=== PATIENT | male | born 1955 | race Caucasian/White ===

== ENCOUNTER 2016-11-21 10:07 | Emergency (ER) | payer OTHER ==
[2016-11-21 10:23] VITALS: BMI 24.4
[2016-11-21 10:36] VITALS: BP 147/88
--- NOTE | 2016-11-21 11:38 | RAD ---
ACUTE ABDOMINAL SERIES CLINICAL HISTORY: 61-year-old male inhaled chemicals. COMPARISON: Chest radiograph February 12, 2016. FINDINGS: PA and lateral chest radiographs demonstrate normal cardiopericardial silhouette. There is no focal c onsolidation, pleural effusion or pneumothorax. Pulmonary vascularity is normal. Abdominal radiographs demonstrate a nonobstructive bowel gas pattern. Gas and stool are seen througho ut the colon. There is no small bowel distention. There is no radiographic evidence of pneumoperitone um. Imaged osseous structures are intact. Soft tissues are unremarkable. IMPRESSION: 1. No acute cardiopulmonary process. 2. Nonobstructive bowel gas pattern without radiographic evidence of pneumoperitoneum. Reported By:
--- NOTE | 2016-11-21 12:14 | DR.GENAD ---
HPI - PCP Primary Care Physician: pedro - HPI Comment HPI Comment: Pt inhaled a mist of detergent at work today. He became SOB and hadsome mild chest pain at the onset.He is alert awake and oriented X3. - Complaint/Symptoms Chief Complaint Doctors Comments: " I am SOB". Chief Complaint:: inhalation of liquid deregent" Self Treatment fo Chief Complaint: sob, wheezing, throat burning - Nurses notes reviewed Nurses Notes Review: Yes - Source History Provided: Patient - Mode of Arrival Mode of Arrival: EMS - Timing Onset of Chief Complaint: 11/21/16 - Duration Duration: Since Onset How lon Duration: Minutes - Severity Severity: Moderate PMH - PMH Past Medical History: Yes Past Medical History: Diabetes, Dyslipidemia, Hypertension, Hypothyroidism Past Surgical History: Yes Surgical History: Appendectomy, Tonsillectomy, Other Past Surgical History Comment: elbow, gerd - Family History History of Family Medical Conditions: Yes Family Medical History: Diabetes Mellitus, Coronary Artery Disease, Hypertension - Social History Does patient currently use any type of tobacco product: No Have you used tobacco products in the last 12 months: No Does any household member use tobacco: No Alcohol Use: None Do you use any recreational Drugs:: No Lives Where: Home - infectious screening In the last 2 months have you had wt loss of >10#?: NO Have you had fever, night sweats or hemotysis?: No Have you traveled outside the country in the last 6 months?: No Isolation: Standard ROS - Review of Systems Constitutional: Diaphoresis Eyes: No Symptoms Reported ENTM: Throat Pain, Throat Swelling Respiratoy: Short of Breath, Wheezing Cardiovascular: Chest Pain Gastrointestinal/Abdominal: No Symptoms Reported Genitourinary: No Symptoms Reported Neurological: Anxiety Musculoskeletal: No Symptoms Reported Integumentary: No Symptoms Reported Hematologic/Lymphatic: No Symptoms Reported Endocrine: No Symptoms Reported Psychiatric: No Symptoms Reported All Other Systems: Reviewed and Negative PE - Vital Signs Vitals: Pulse Rate [Apical] 86 Pulse Rate 86 Respiratory Rate 22 Blood Pressure [Left Arm] 147/88 Blood Pressure 188/86 O2 Sat by Pulse Oximetry 99 - General Limitations: No Limitations General Appearance: Alert, In No Apparent Distress - Head Head Exam: Normal Inspection - Eyes Eye exam: Normal Appearance, PERRL, EOMI - ENT ENT Exam: Normal Exam, Normal Oropharynx, Normal External Ear Exam, Mucous Membranes Moist Nose Exam: Normal Nose Exam Mouth Exam: Normal Inspection Throat Exam: Normal Inspection - Neck Neck Exam: Normal Inspection, Full ROM, Trachea Midline - Chest Chest Inspection: Normal Inspection, Symmetric Chest Wall Rise - Respiratory Respiratory Exam: Normal Lung Sounds Bilat Respiratory Exam: Bilateral Clear to Auscultation - Cardiovascular Cardiovascular Exam: Regular Rate, Normal Rhythm, Normal Heart Sounds - Abdominal Exam Abdominal Exam: Normal Inspection, Soft - Extremities Extremities Exam: Normal Inspection, Full ROM - Back Back Exam: Normal Inspection, Full ROM - Neurologic Neurological Exam: Alert, Oriented X3, CN II-XII Intact - Psychiatric Psychiatric Exam: Normal Affect, Normal Mood - Skin Skin Exam: Warm, Dry, Intact, Normal Color MDM - Differential Diagnosis Differential Diagnosis: allergic reaction, Course - Treatment Treatment: supportive methods - Reevaluation 1st: Improved - Consultation Called: 12:19 (poison control) Call Returned: 12:19 (supportive care) ROR - Labs Reviewed Result Diagrams: 11/21/16 12:30 11/21/16 12:30 Laboratory: WBC 5.4 X10^3/uL (3.6-10.0) 11/21/16 12:30 RBC 5.39 X10^6/uL (4.7-6.0) 11/21/16 12:30 Hgb 16.7 g/dL (13.5-18.0) 11/21/16 12:30 Hct 47.1 % (42.0-54.0) 11/21/16 12:30 MCV 87.3 fL (80.0-100.0) 11/21/16 12:30 MCH 31.0 pg (27.0-34.0) 11/21/16 12:30 MCHC 35.5 g/dL (33.0-35.0) H 11/21/16 12:30 RDW 14.2 % (11.6-16.5) 11/21/16 12:30 Plt Count 111 X10^3/uL (150.0-450.0) L 11/21/16 12:30 MPV 8.4 fL (7.4-11.0) 11/21/16 12:30 Neut % 67.1 % (42.0-75.0) 11/21/16 12:30 Lymph % 22.5 % (21.0-51.0) 11/21/16 12:30 Preston % 8.3 % (0.0-13.0) 11/21/16 12:30 Eos % 1.4 % (0.9-2.9) 11/21/16 12:30 Baso % 0.7 % (0.2-1.0) 11/21/16 12:30 Neut # 3.6 x10^3/uL (2.2-4.8) 11/21/16 12:30 Lymph # 1.2 X10^3/uL (1.3-2.9) L 11/21/16 12:30 Preston # 0.4 x10^3/uL (0.3-0.8) 11/21/16 12:30 Eos # 0.1 x10^3/uL (0.0-0.2) 11/21/16 12:30 Baso # 0.0 X10^3/uL (0.0-0.1) 11/21/16 12:30 Absolute Nucleated RBC 0.1 /100WBC 11/21/16 12:30 Sodium 144 mmol/L (136-145) 11/21/16 12:30 Corrected Sodium 146 mmol/L (136-145) H 11/21/16 12:30 Potassium 4.8 mmol/L (3.5-5.1) 11/21/16 12:30 Chloride 108 mmol/L (98-107) H 11/21/16 12:30 Carbon Dioxide 29.0 mmol/L (21-32) 11/21/16 12:30 BUN 15 mg/dL (7-18) 11/21/16 12:30 Creatinine 1.30 mg/dL (0.70-1.30) 11/21/16 12:30 Est GFR (MDRD) Af Amer > 60 (>60) 11/21/16 12:30 Est GFR (MDRD) Non-Af 59 (>60) 11/21/16 12:30 Glucose 191 mg/dL (65-99) H 11/21/16 12:30 Calcium 9.2 mg/dL (8.5-10.1) 11/21/16 12:30 Corrected Calcium TNP 11/21/16 12:30 Total Bilirubin 0.80 mg/dL (0.2-1.0) 11/21/16 12:30 AST 18 Units/L (15-37) 11/21/16 12:30 ALT 36 Units/L (12-78) 11/21/16 12:30 Alkaline Phosphatase 61 Units/L (46-116) 11/21/16 12:30 Total Protein 7.4 g/dL (6.4-8.2) 11/21/16 12:30 Albumin 3.9 g/dL (3.4-5.0) 11/21/16 12:30 Globulin 3.5 g/dL (2.5-4.5) 11/21/16 12:30 Albumin/Globulin Ratio 1.1 Ratio (1.1-2.1) 11/21/16 12:30 - Diagnosis Discharge Problem: Allergic reaction to chemical substance Qualifiers: Encounter type: initial encounter Injury intent: accidental or unintentional Qualified Code(s): T65.91XA - Toxic effect of unspecified substance, accidental (unintentional), initial encounter - Discharge Plan Disposition: HOME, SELF-CARE Condition: Stable - Follow ups/Referrals Follow ups/Referrals: GIULIA GANDARA [Primary Care Provider] - 3 days - Instructions Instructions: Angioedema, [id number]
[2016-11-21 12:44] LABS: BASOPHILS % (AUTO) 0.7 % (0.2-1.0); EOSINOPHILS # (AUTO) 0.1 x10^3/uL (0.0-0.2); EOSINOPHILS % (AUTO) 1.4 % (0.9-2.9); HEMATOCRIT 47.1 % (42.0-54.0); HEMOGLOBIN 16.7 g/dL (13.5-18.0); LYMPHOCYTES # (AUTO) 1.2 X10^3/uL (1.3-2.9); LYMPHOCYTES % (AUTO) 22.5 % (21.0-51.0); MEAN CORPUSCULAR HGB CONC 35.5 g/dL (33.0-35.0); MEAN CORPUSCULAR VOLUME 87.3 fL (80.0-100.0); MEAN PLATELET VOLUME 8.4 fL (7.4-11.0); MONOCYTES # (AUTO) 0.4 x10^3/uL (0.3-0.8); MONOCYTES % (AUTO) 8.3 % (0.0-13.0); NEUTROPHILS # (AUTO) 3.6 x10^3/uL (2.2-4.8); NEUTROPHILS % (AUTO) 67.1 % (42.0-75.0); PLATELET COUNT 111 X10^3/uL (150.0-450.0); RED BLOOD COUNT 5.39 X10^6/uL (4.7-6.0); RED CELL DISTRIBUTION WIDTH 14.2 % (11.6-16.5); WHITE BLOOD COUNT 5.4 X10^3/uL (3.6-10.0)
[2016-11-21] MEDS ORDERED: BENADRYL CAP/TAB 25 MG PO ONE (12:51)
[2016-11-21] MEDS: BENADRYL CAP 50 MG PO ONE ×2 (12:53→13:10)
[2016-11-21 12:56] LABS: ALANINE AMINOTRANSFERASE 36 Units/L (12-78); ALBUMIN 3.9 g/dL (3.4-5.0); ALKALINE PHOSPHATASE 61 Units/L (46-116); ASPARTATE AMINO TRANSFERASE 18 Units/L (15-37); BLOOD UREA NITROGEN 15 mg/dL (7-18); CALCIUM 9.2 mg/dL (8.5-10.1); CHLORIDE 108 mmol/L (98-107); COR NA(FOR HYPERGLY) 146 mmol/L (136-145); GLUCOSE 191 mg/dL (65-99); SODIUM 144 mmol/L (136-145); TOTAL PROTEIN 7.4 g/dL (6.4-8.2); eGFR BLACK RACES > 60 (>60); eGFR NON BLACK RACES 59 (>60)
== END 2016-11-21 13:17 | disposition home or self-care (01) ==
LOC: ER 10:17
DX: R06.02 Shortness of breath (principal); T65.91XA Toxic effect of unspecified substance, accidental (unintentional), initial encounter
CPT/HCPCS: 36415; 74022; 80053; 85025; 93005; 93010; 96374; 99282; 99283

== ENCOUNTER 2016-12-08 11:47 | Observation (INO) | payer OTHER ==
[2016-12-08 12:03] VITALS: BMI 25.0
--- NOTE | 2016-12-08 12:18 | DR.WEAKNES ---
HPI - Time Seen Time seen: 12:05 - Primary Care Physician Primary Care Physician: NICHOL GRAVES - HPI Comment HPI Comment: WOKE UP. WENT TO [facility], LEFT FACIAL NUMBNESS WITH NECK PAIN ON LEFT SIDE. THIS WAS FOLLOW BY NUMBNESS AND WEAKNESS ON THE LEFT SIDE. CAME TO ED. HE FEEL DIZZY. TOOK 325MG ASPRIN THIS AM. - Complaints Chief Complaint Doctors Comments: LEFT FACIAL AND LEFT SIDED NUMBNESS AND WEAKNESS SINCE 10:00AM TODAY. Chief Complaint:: PT C/O AROUND 10 AM PT C/O NUMBNESS TO HIS LEFT SIDE OF FACE, AND LEFT SIDE WEAKNESS,,, Self Treatment fo Chief Complaint: PT C/O PAIN TO THE RIGHT SIDE OF HIS HEAD, NECK.. PT IS ABLE TO ANWER QUESTIONS AND MOVE ALL EXTS WELL.. - Reviewed Nurses Notes Reviewed: Yes - Source History Provided: Patient - Mode of Arrival Mode of Arrival: Wheelchair - Timing Onset of Chief Complaint: 12/08/16 Since onset, symptoms are:: Unchanged Symptom Onset: Unknown Onset of Symptoms Start Date: 12/08/16 Onset of Symptoms Start Time: 10:00 - Duration Duration: Constant Duration: Hours - Context Onset: Spontaneous, At rest Symptoms: Weakness, Numbness History of: CVA, TIA, Aspirin use Stroke Symptoms: Weakness of limb, Numbness of limbs, Dizziness - Location Weakness Location: Left, Sided, Arm, Leg, Facial - Associated Signs and Symptoms Associated Signs and Symptoms: Neck Pain PMH - PMH Past Medical History: Yes Past Medical History: Alzheimers, Diabetes, Dyslipidemia, Hypertension, Hypothyroidism Past Surgical History: Yes Surgical History: Appendectomy, Tonsillectomy, Other - Family History History of Family Medical Conditions: Yes Family Medical History: Diabetes Mellitus, Coronary Artery Disease, Hypertension - Social History Does patient currently use any type of tobacco product: No Have you used tobacco products in the last 12 months: No Type of Tobacco Use: None Does any household member use tobacco: No Alcohol Use: None Do you use any recreational Drugs:: No Lives With: Family Lives Where: Home - infectious screening In the last 2 months have you had wt loss of >10#?: NO Have you had fever, night sweats or hemotysis?: No Have you traveled outside the country in the last 6 months?: No Isolation: Standard ROS - Review of Systems Constitutional: Weakness (LT SIDED.) Eyes: Blurred Vision (TRANSIENT BLURRED VISION AROUND 10:00AM BUT RESOLVRE QUICKLY.) ENTM: No Symptoms Reported. negative: Ear Pain, Nose Discharge, Nose Congestion , Throat Pain Respiratoy: Short of Breath. negative: Productive Cough, Non-Productive Cough, Wheezing, Hemoptysis Cardiovascular: No Symptoms Reported. negative: Chest Pain, Edema, Palpitations Gastrointestinal/Abdominal: No Symptoms Reported. negative: Abdominal Pain, Constipation, Diarrhea, Nausea, Vomiting Genitourinary: No Symptoms Reported. negative: Dysuria, Frequency, Hematuria Neurological: Headache, Numbness, Weakness, Dizziness Musculoskeletal: No Symptoms Reported Integumentary: No Symptoms Reported Hematologic/Lymphatic: No Symptoms Reported Endocrine: No Symptoms Reported All Other Systems: Reviewed and Negative PE - Vital Signs Vitals: Temperature 97.7 F Pulse Rate [Left Brachial] 75 Pulse Rate 80 Respiratory Rate 20 Blood Pressure [Left Arm] 134/75 Blood Pressure 156/87 O2 Sat by Pulse Oximetry 100 - General Limitations: No Limitations General Appearance: Alert - Head Head Exam: Normal Inspection - Eyes Eye exam: Normal Appearance Eyelids: Normal Inspection: Bilateral Pupils: Regular, Round: Bilateral, Reactive: Bilateral Sclera/Conjunctival: Normal Inspection: Bilateral - ENT ENT Exam: Normal Exam Mouth Exam: Normal Inspection Throat Exam: Normal Inspection - Neck Neck Exam: Trachea Midline - Chest Chest Inspection: Symmetric Chest Wall Rise - Respiratory Respiratory Exam: Normal Lung Sounds Bilat Respiratory Exam: Bilateral Clear to Auscultation - Cardiovascular Cardiovascular Exam: Regular Rate, Normal Rhythm, Normal Heart Sounds - Abdominal Exam Abdominal Exam: Normal Bowel Sounds, Soft. negative: Tenderness - Extremities Extremities Exam: negative: Tenderness, Edema, Calf Tenderness - Back Back Exam: Normal Inspection - Neurologic Neurological Exam: Alert, Oriented X3, Normal Gait, Reflexes Normal, Other ( DECREASE SENSATION LEFT FACE.) Patient Oriented To: Person, Place, Time Speech: Fluid Speech Cranial Nerve Exam: EOM Function (II, III, IV, ): Normal, Facial Sensation (V) : Left Abnormal (DECREASE SENSATION), Gag reflex (XI): Normal, Spinal Accessory Function (XI): Normal, Tongue Deviation: Normal Cerebellar Function: Normal Gait Motor Strength - LUE: 4/5 Motor Strength - RUE: 5/5 Motor Strength - LLE: 4/5 Motor Strength - RLE: 5/5 Upper Motor Neuron Exam: Babinski Sign: Normal DTR: achilles tendon (L): 4+, achilles tendon (R): 4+, brachioradialis (L): 4+, brachioradialis (R): 4+, Patellar (L): 4+, patellar (R): 4+ - Psychiatric Psychiatric Exam: Anxious - Skin Skin Exam: Normal Color MDM - Additional Information Obtained Additional Information Obtained From: Family - Differential Diagnosis Differential Diagnosis: Cuellar's Palsey, CVA, Electrolyte Disorder, Hypoglycemia, Mass Lesion, TIA Course - Treatment Treatment: SEE ORDERS. PLAVIX PO IN ED. 325MG ASPRIN TAKEN AT HOME. - Consultation Consultation Comments: STROKE TELEMEDINE, SEE REPORT. DISCUSS PATIENT WITH DR. AZEVEDO. HE WILL ADMIT FOR OBS. - Education/Counseling Education/Counseling: Patient, Family, Education Educated On: Diagnosis ROR - Labs Reviewed Laboratory Results Reviewed?: Yes Result Diagrams: 12/09/16 04:45 12/09/16 04:45 Laboratory: WBC 4.3 X10^3/uL (3.6-10.0) 12/08/16 12:33 RBC 5.21 X10^6/uL (4.7-6.0) 12/08/16 12:33 Hgb 16.2 g/dL (13.5-18.0) 12/08/16 12:33 Hct 45.5 % (42.0-54.0) 12/08/16 12:33 MCV 87.3 fL (80.0-100.0) 12/08/16 12:33 MCH 31.0 pg (27.0-34.0) 12/08/16 12:33 MCHC 35.5 g/dL (33.0-35.0) H 12/08/16 12:33 RDW 13.8 % (11.6-16.5) 12/08/16 12:33 Plt Count 118 X10^3/uL (150.0-450.0) L 12/08/16 12:33 MPV 8.1 fL (7.4-11.0) 12/08/16 12:33 Neut % 59.6 % (42.0-75.0) 12/08/16 12:33 Lymph % 26.8 % (21.0-51.0) 12/08/16 12:33 Webb % 9.9 % (0.0-13.0) 12/08/16 12:33 Eos % 3.0 % (0.9-2.9) H 12/08/16 12:33 Baso % 0.7 % (0.2-1.0) 12/08/16 12:33 Neut # 2.6 x10^3/uL (2.2-4.8) 12/08/16 12:33 Lymph # 1.2 X10^3/uL (1.3-2.9) L 12/08/16 12:33 Webb # 0.4 x10^3/uL (0.3-0.8) 12/08/16 12:33 Eos # 0.1 x10^3/uL (0.0-0.2) 12/08/16 12:33 Baso # 0.0 X10^3/uL (0.0-0.1) 12/08/16 12:33 Absolute Nucleated RBC 0.1 /100WBC 12/08/16 12:33 INR Target Range - 12/08/16 12:33 INR 1.03 (0.8-1.3) 12/08/16 12:33 PTT 26.8 SECONDS (22.9-36.5) 12/08/16 12:33 PTT Comment - 12/08/16 12:33 Fibrinogen 273 mg/dL (239-489) 12/08/16 12:33 Sodium 140 mmol/L (136-145) 12/08/16 12:33 Corrected Sodium 142 mmol/L (136-145) 12/08/16 12:33 Potassium 4.0 mmol/L (3.5-5.1) 12/08/16 12:33 Chloride 106 mmol/L (98-107) 12/08/16 12:33 Carbon Dioxide 27.1 mmol/L (21-32) 12/08/16 12:33 BUN 12 mg/dL (7-18) 12/08/16 12:33 Creatinine 1.24 mg/dL (0.70-1.30) 12/08/16 12:33 Est GFR (MDRD) Af Amer > 60 (>60) 12/08/16 12:33 Est GFR (MDRD) Non-Af > 60 (>60) 12/08/16 12:33 Glucose 183 mg/dL (65-99) H 12/08/16 12:33 Calcium 8.9 mg/dL (8.5-10.1) 12/08/16 12:33 Corrected Calcium TNP 12/08/16 12:33 Total Bilirubin 0.70 mg/dL (0.2-1.0) 12/08/16 12:33 AST 22 Units/L (15-37) 12/08/16 12:33 ALT 30 Units/L (12-78) 12/08/16 12:33 Alkaline Phosphatase 55 Units/L (46-116) 12/08/16 12:33 Creatine Kinase 126 Units/L (39-308) 12/08/16 12:33 CK-MB (CK-2) 1.6 ng/mL (0-4.0) 12/08/16 12:33 CK/CKMB % Calc 1.3 % (<4) 12/08/16 12:33 Troponin I < 0.02 ng/mL (0-1.5) 12/08/16 12:33 Total Protein 6.6 g/dL (6.4-8.2) 12/08/16 12:33 Albumin 3.4 g/dL (3.4-5.0) 12/08/16 12:33 Globulin 3.2 g/dL (2.5-4.5) 12/08/16 12:33 Albumin/Globulin Ratio 1.1 Ratio (1.1-2.1) 12/08/16 12:33 - XRAY XRAY Interpreted by: Radiologist XRAY Findings: REPORT DISCUSS WITH PATIENT. - EKG Rhythm: NSR (EKG NOTED) - Diagnosis Discharge Problem: Left-sided weakness, TIA (transient ischemic attack) - Discharge Plan Disposition: ADMITTED INPATIENT Condition: Stable - Follow ups/Referrals - Instructions
--- NOTE | 2016-12-08 12:45 | CT ---
CT HEAD WITHOUT CONTRAST CLINICAL HISTORY: 61-year-old male with left-sided numbness injury penis. COMPARISON: CT head September 04, 2010. TECHNIQUE: Multiple, non-contrasted axial CT images were obtained from the skull base to the cranial vertex. Coronal and sagittal reformats were performed. FINDINGS: There are no abnormal intra- or extra-axial fluid collections, midline shift, or mass effec t. Asymmetric hyperdensity within the distal M2 proximal M3 branches on the right with subtle blurrin g of the bain-white. Global cortical involutional changes are present that are advanced for the patie nt's stated age. The ventricular system is mildly enlarged but commensurate with the degree of sulcal prominence. Periventricular and supraventricular white matter hypodensity is present that is nonspec ific in appearance, but most likely to represent microvascular ischemic changes. Atherosclerotic vasc ular calcification is present within the carotid siphons. The imaged paranasal sinuses, mastoid air cells, and tympanic spaces are clear. IMPRESSION: 1. Hyperdense distal right M2 and proximal right M3 branches with subtle blurring of the bain-white, suggesting acute occlusive ischemic insult, recommend conventional angiography if available or transf er to facility with the capability if patient remains within the stroke window. MRI/MRA brain for com plete evaluation. 2. Moderate microvascular white matter ischemic changes, with associated volume loss. Findings were discussed via telephone with Dr. Gauthier, by Dr. [facility] on December 08, 2016 a t 12:40 p.m.. Reported By:
--- NOTE | 2016-12-08 12:51 | RAD ---
HISTORY: 61-year-old male with stroke like symptoms. Study: Frontal view of the chest. Comparison: Chest radiograph November 21, 2016. Findings: The trachea is midline. The cardiac silhouette is unremarkable. The lungs are clear without focal c onsolidation, effusion or pneumothorax. Soft tissues are unremarkable. Osseous structures are unrema rkable. IMPRESSION: 1. No acute cardiopulmonary disease. Reported By:
[2016-12-08 12:56] LABS: BASOPHILS % (AUTO) 0.7 % (0.2-1.0); EOSINOPHILS # (AUTO) 0.1 x10^3/uL (0.0-0.2); HEMATOCRIT 45.5 % (42.0-54.0); HEMOGLOBIN 16.2 g/dL (13.5-18.0); LYMPHOCYTES # (AUTO) 1.2 X10^3/uL (1.3-2.9); LYMPHOCYTES % (AUTO) 26.8 % (21.0-51.0); MEAN CORPUSCULAR HGB CONC 35.5 g/dL (33.0-35.0); MEAN CORPUSCULAR VOLUME 87.3 fL (80.0-100.0); MEAN PLATELET VOLUME 8.1 fL (7.4-11.0); MONOCYTES # (AUTO) 0.4 x10^3/uL (0.3-0.8); MONOCYTES % (AUTO) 9.9 % (0.0-13.0); NEUTROPHILS # (AUTO) 2.6 x10^3/uL (2.2-4.8); NEUTROPHILS % (AUTO) 59.6 % (42.0-75.0); PLATELET COUNT 118 X10^3/uL (150.0-450.0); RED BLOOD COUNT 5.21 X10^6/uL (4.7-6.0); RED CELL DISTRIBUTION WIDTH 13.8 % (11.6-16.5); WHITE BLOOD COUNT 4.3 X10^3/uL (3.6-10.0)
[2016-12-08 13:05] LABS: BLOOD UREA NITROGEN 12 mg/dL (7-18); CALCIUM 8.9 mg/dL (8.5-10.1); CARBON DIOXIDE 27.1 mmol/L (21-32); CHLORIDE 106 mmol/L (98-107); COR NA(FOR HYPERGLY) 142 mmol/L (136-145); CREATININE 1.24 mg/dL (0.70-1.30); SODIUM 140 mmol/L (136-145); TROPONIN I < 0.02 ng/mL (0-1.5); eGFR BLACK RACES > 60 (>60); eGFR NON BLACK RACES > 60 (>60)
[2016-12-08 13:06] LABS: ALANINE AMINOTRANSFERASE 30 Units/L (12-78); ALBUMIN 3.4 g/dL (3.4-5.0); ALKALINE PHOSPHATASE 55 Units/L (46-116); ASPARTATE AMINO TRANSFERASE 22 Units/L (15-37); CKMB % 1.3 % (<4); CREATINE KINASE 126 Units/L (39-308); CREATINE KINASE MB 1.6 ng/mL (0-4.0); TOTAL PROTEIN 6.6 g/dL (6.4-8.2)
[2016-12-08] MEDS ORDERED: NS 1000 ML 1,000 ML ONE (13:20)
[2016-12-08] MEDS: NS 1000 ML 1,000 ML IV SCH ×2 (13:28→22:13)
[2016-12-08] MEDS ORDERED: BRILINTA PO SCH (14:00)
[2016-12-08] MEDS ORDERED: PLAVIX PO ONE (14:15)
[2016-12-08] MEDS ORDERED: PLAVIX ONE (14:24)
[2016-12-08] MEDS: ASPIRIN PO SCH (14:38)
[2016-12-08] MEDS ORDERED: NS 100 ML IV 100 ML IV ONE (15:59)
[2016-12-08 16:01] LABS: CHOL/HDL RATIO 4.6 (0.0-5.0)
--- NOTE | 2016-12-08 18:20 | CT ---
CT ANGIOGRAPHY NECK CLINICAL HISTORY: 61-year-old male with right-sided head and neck pain with dizziness. COMPARISON: None. TECHNIQUE: Multiple axial CT images were obtained from the skull base to the aortic arch prior to an d following the administration of IV contrast and reformatted in the sagittal and coronal planes. Rot ating 3D and MIP reformats are submitted. FINDINGS: The take-off of the great vessels is conventional. The origins of the common carotid and ve rtebral arteries are patent. There is no evidence of dissection or high grade stenosis of the carotid or vertebral systems. The vertebral arteries are codominant. The vertebral arteries terminate in a n ormal appearing basilar artery. The carotid bifurcations are normal in appearance. The soft tissues of the neck are within normal limits. The visualized lung apices are clear. The osse ous structures are within normal limits. IMPRESSION: No complete occlusion , aneurysm, dissection, vascular malformation or high grade stenosis of the car otid or vertebral systems. Reported By:
[2016-12-08 19:05] LABS: BILIRUBIN,URINE NEGATIVE (NEGATIVE); BLOOD/HEMOGLOBIN,URINE NEGATIVE (NEGATIVE); GLUCOSE, URINE 2+ (NEGATIVE); KETONES,URINE NEGATIVE (NEGATIVE); LEUKOCYTE ESTERASE ,URINE NEGATIVE (NEGATIVE); NITRITES,URINE NEGATIVE (NEGATIVE); PROTEIN,URINE 1+ (NEGATIVE); UROBILINOGEN,URINE 1+ (NORMAL)
[2016-12-08 19:32] LABS: APPEARANCE,URINE CLEAR (CLEAR); BACTERIA,URINE NEGATIVE /HPF (NEGATIVE); COLOR,URINE YELLOW (YELLOW); RBC,URINE NONE SEEN /HPF (NEGATIVE); SQUAMOUS EPITHELIAL CELL,UR FEW /HPF (NEGATIVE)
[2016-12-08 19:33] LABS: AMORPHOUS SEDIMENT,UR TRACE /HPF (NEGATIVE); HYALINE CASTS, URINE RARE /LPF (NEGATIVE)
[2016-12-08 19:40] LABS: CKMB % 1.2 % (<4); CREATINE KINASE MB 1.2 ng/mL (0-4.0); TROPONIN I 0.02 ng/mL (0-1.5)
[2016-12-09 01:49] LABS: CKMB % 1.2 % (<4); CREATINE KINASE 87 Units/L (39-308); CREATINE KINASE MB < 1.0 ng/mL (0-4.0); TROPONIN I 0.04 ng/mL (0-1.5)
[2016-12-09 06:22] LABS: BASOPHILS % (AUTO) 0.5 % (0.2-1.0); EOSINOPHILS # (AUTO) 0.1 x10^3/uL (0.0-0.2); EOSINOPHILS % (AUTO) 2.4 % (0.9-2.9); HEMOGLOBIN 15.3 g/dL (13.5-18.0); LYMPHOCYTES # (AUTO) 1.4 X10^3/uL (1.3-2.9); LYMPHOCYTES % (AUTO) 32.4 % (21.0-51.0); MEAN CORPUSCULAR HEMOGLOBIN 31.2 pg (27.0-34.0); MEAN CORPUSCULAR HGB CONC 36.2 g/dL (33.0-35.0); MEAN CORPUSCULAR VOLUME 86.1 fL (80.0-100.0); MEAN PLATELET VOLUME 8.3 fL (7.4-11.0); MONOCYTES # (AUTO) 0.4 x10^3/uL (0.3-0.8); MONOCYTES % (AUTO) 8.5 % (0.0-13.0); NEUTROPHILS # (AUTO) 2.4 x10^3/uL (2.2-4.8); NEUTROPHILS % (AUTO) 56.2 % (42.0-75.0); PLATELET COUNT 104 X10^3/uL (150.0-450.0); RED BLOOD COUNT 4.89 X10^6/uL (4.7-6.0); RED CELL DISTRIBUTION WIDTH 14.1 % (11.6-16.5); WHITE BLOOD COUNT 4.3 X10^3/uL (3.6-10.0)
[2016-12-09 06:37] LABS: ALANINE AMINOTRANSFERASE 26 Units/L (12-78); ALBUMIN 3.1 g/dL (3.4-5.0); ALKALINE PHOSPHATASE 42 Units/L (46-116); ASPARTATE AMINO TRANSFERASE 22 Units/L (15-37); BLOOD UREA NITROGEN 12 mg/dL (7-18); CALCIUM 8.4 mg/dL (8.5-10.1); CARBON DIOXIDE 26.9 mmol/L (21-32); CHLORIDE 109 mmol/L (98-107); COR CA(FOR HYPOALB) 9.1 mg/dL (8.5-10.1); COR NA(FOR HYPERGLY) 143 mmol/L (136-145); CREATININE 1.04 mg/dL (0.70-1.30); SODIUM 143 mmol/L (136-145); eGFR BLACK RACES > 60 (>60); eGFR NON BLACK RACES > 60 (>60)
[2016-12-09 06:40] LABS: HEMATOCRIT 42.8 % (42.0-54.0)
[2016-12-09] MEDS: NS 1000 ML 1,000 ML IV SCH ×4 (06:46→22:00)
[2016-12-09] MEDS: ASPIRIN PO SCH (09:23)
[2016-12-09] MEDS: PLAVIX PO SCH (09:24)
[2016-12-09] MEDS ORDERED: ATIVAN INJ 2 MG VIAL IVP ONE (10:35)
[2016-12-09] MEDS ORDERED: MOTRIN TAB 800 MG PO PRN (12:11)
[2016-12-09] MEDS ORDERED: HumuLIN R SUBCUT PRN (12:12)
[2016-12-09] MEDS ORDERED: FATTY ACIDS PO SCH (12:15)
[2016-12-09] MEDS ORDERED: OMEGA PO SCH (12:15)
[2016-12-09] MEDS ORDERED: PATIENT'S HOME MEDICATION (Metformin Hcl [Metformin Hcl] 1,000 MG) PO SCH (12:15)
[2016-12-09] MEDS ORDERED: NIACIN 750 MG PO SCH (12:15)
--- NOTE | 2016-12-09 13:01 | MRI ---
MRI Brain without contrast HISTORY: Left-sided weakness and facial drooping Comparison: none available Technique: Multiplanar multi-sequence MRI of the brain was obtained utilizing standard departmental p rotocol. Sagittal and axial T1 weighted images were obtained. Axial T2 and flair weighted images we re performed as well. Axial diffusion weighted and ADC trace mapping was performed. Findings: There is very mild subcortical T to signal abnormality within the subinsular cortex and deep white ma tter which is nonspecific however likely represents sequela of chronic microvascular ischemic disease . The midline structures appear unremarkable. The evaluation of the brain parenchyma demonstrates no a bnormal signal characteristics to suggest intraparenchymal mass or hemorrhage. No extra-axial fluid collections are observed. The ventricular system appears symmetric and nondilated. The CP angle is normal in its appearance without brainstem mass or evidence for acoustic neuroma. The flow voids on both T1 and T2 weighted imaging appear unremarkable. Evaluation of the diffusion weighted imaging d oes not demonstrate abnormal signal characteristics to suggest acute ischemic change. The extracrani al structures are unremarkable. IMPRESSION: 1. Unremarkable MRI of the brain without contrast. 2. Mild deep and subcortical white matter FLAIR and T2 signal hyperintensity is nonspecific; however likely represents sequela of chronic microvascular ischemic disease. Reported By:
--- NOTE | 2016-12-09 13:04 | MRI ---
HISTORY: TIA. Weakness on left side. Left-sided facial drooping. Study: MRA of the brain, noncontrast Comparison: No priors Technique: utilizing 3D [id number] sequences , in addition, MIP images were performed and the ves sels of the brain are evaluated without IV contrast. Findings: There is strong signal present from the vertebral, basilar and internal carotid arteries bilaterally. Neither posterior communicating artery is imaged. The anterior communicating artery is patent. No an eurysm or AVM is seen. There is no evidence of stenotic or occlusive intracranial disease. IMPRESSION: Neither posterior communicating artery is imaged. Anterior communicating artery is patent. No aneurysm or AVM is seen. No evidence of stenotic or occlusive intracranial disease. Reported By:
--- NOTE | 2016-12-09 13:31 | VAS ---
HISTORY: TIA, syncope, left-sided weakness Study: Carotid sonogram Comparison: None Technique: Multiple bain scale and color flow Doppler images of the right and left carotid arterial s ystem were obtained. The vertebral arterial system was evaluated as well. Findings: Normal color flow Doppler is seen throughout the right and left carotid arterial system. No hemodyna mically significant stenosis is seen based on velocity criteria. The right and left vertebral arteri es demonstrate antegrade flow. IMPRESSION: 1. No hemodynamically significant stenosis. Reported By:
[2016-12-09] MEDS: NEURONTIN CAP 300 MG PO SCH ×2 (13:39→21:36)
[2016-12-09] MEDS: PLETAL PO SCH ×2 (13:40→21:36)
[2016-12-09] MEDS: GLUCOTROL PO SCH ×2 (13:40→21:36)
[2016-12-09] MEDS ORDERED: SYNTHROID 50 mcg TAB PO SCH (16:30)
[2016-12-09] MEDS ORDERED: GLUCOPHAGE ONE (17:51)
[2016-12-09] MEDS: GLUCOPHAGE PO SCH (17:58)
[2016-12-09] MEDS ORDERED: SNACK - Diabetic Appropriate PO SCH (20:00)
[2016-12-09] MEDS ORDERED: ASPIRIN 325 MG PO SCH (21:00)
[2016-12-09] MEDS: LOVAZA PO SCH (21:36)
[2016-12-09] MEDS: NIASPAN ER TAB 500 MG PO SCH (21:36)
[2016-12-10] MEDS: NS 1000 ML 1,000 ML IV SCH (05:38)
[2016-12-10 05:52] LABS: BASOPHILS % (AUTO) 0.6 % (0.2-1.0); EOSINOPHILS # (AUTO) 0.1 x10^3/uL (0.0-0.2); EOSINOPHILS % (AUTO) 2.5 % (0.9-2.9); HEMATOCRIT 41.8 % (42.0-54.0); LYMPHOCYTES % (AUTO) 20.1 % (21.0-51.0); MEAN CORPUSCULAR HEMOGLOBIN 31.4 pg (27.0-34.0); MEAN CORPUSCULAR HGB CONC 35.8 g/dL (33.0-35.0); MEAN CORPUSCULAR VOLUME 87.8 fL (80.0-100.0); MEAN PLATELET VOLUME 8.2 fL (7.4-11.0); MONOCYTES # (AUTO) 0.4 x10^3/uL (0.3-0.8); MONOCYTES % (AUTO) 7.2 % (0.0-13.0); NEUTROPHILS # (AUTO) 3.6 x10^3/uL (2.2-4.8); NEUTROPHILS % (AUTO) 69.6 % (42.0-75.0); PLATELET COUNT 105 X10^3/uL (150.0-450.0); RED BLOOD COUNT 4.77 X10^6/uL (4.7-6.0); RED CELL DISTRIBUTION WIDTH 13.9 % (11.6-16.5); WHITE BLOOD COUNT 5.2 X10^3/uL (3.6-10.0)
[2016-12-10 06:03] LABS: ALANINE AMINOTRANSFERASE 24 Units/L (12-78); ALBUMIN 2.9 g/dL (3.4-5.0); ALKALINE PHOSPHATASE 49 Units/L (46-116); ASPARTATE AMINO TRANSFERASE 16 Units/L (15-37); BLOOD UREA NITROGEN 12 mg/dL (7-18); CALCIUM 7.8 mg/dL (8.5-10.1); CARBON DIOXIDE 23.5 mmol/L (21-32); CHLORIDE 109 mmol/L (98-107); COR CA(FOR HYPOALB) 8.7 mg/dL (8.5-10.1); COR NA(FOR HYPERGLY) 144 mmol/L (136-145); CREATININE 1.14 mg/dL (0.70-1.30); SODIUM 141 mmol/L (136-145); TOTAL PROTEIN 5.7 g/dL (6.4-8.2); eGFR BLACK RACES > 60 (>60); eGFR NON BLACK RACES > 60 (>60)
[2016-12-10] MEDS ORDERED: GLUCOPHAGE ONE (06:03)
[2016-12-10] MEDS: GLUCOPHAGE PO SCH (06:05)
[2016-12-10] MEDS: GLUCOTROL PO SCH (08:42)
[2016-12-10] MEDS: NEURONTIN CAP 300 MG PO SCH (08:43)
[2016-12-10] MEDS: ASPIRIN PO SCH (08:43)
[2016-12-10] MEDS: NIASPAN ER TAB 500 MG PO SCH (08:43)
[2016-12-10] MEDS: PLETAL PO SCH (08:44)
[2016-12-10] MEDS: PLAVIX PO SCH (08:45)
[2016-12-10] MEDS: LOVAZA PO SCH (08:45)
[2016-12-10 09:44] VITALS: BP 134/74
== END 2016-12-10 13:22 | disposition home or self-care (01) ==
LOC: ER 11:47 → ICU 14:30
PROVIDERS: ADMIT Internal Medicine; ATTEND Internal Medicine
DX: R20.0 Anesthesia of skin (principal); M54.2 Cervicalgia; R06.02 Shortness of breath; R29.810 Facial weakness; Z79.899 Other long term (current) drug therapy; Z79.01 Long term (current) use of anticoagulants; E11.65 Type 2 diabetes mellitus with hyperglycemia
CPT/HCPCS: 36415; 70450; 70498; 70544; 70551; 71010; 80053; 80061; 81001; 82550; 82553; 84484; 85025; 85384; 85610; 85730; 93005; 93010; 93880; 96365; 99284; 99285; A4222; G0378; J2060

== ENCOUNTER 2020-07-27 05:30 | Observation (INO) ==
[2020-07-27 05:42] VITALS: BMI 26.7
[2020-07-27] MEDS ORDERED: LEVSIN/MAALOX/LIDOC VISC PO ONE (05:58)
[2020-07-27] MEDS ORDERED: LEVSIN/MAALOX/LIDOC VISC ONE (06:02)
--- NOTE | 2020-07-27 06:07 | DR.ABDMALE ---
HPI Time seen Time Seen by Provider: 07/27/20 05:53 PCP Primary Care Physician: STEPHAN HPI comment HPI Comment: A 5 y/o male presenting with epigastric pain onset since 0130 hrs. It has been intermittent but stronger since. He describes the pain as sharp and located across the upper abdomen. He feels bloated Complaint Chief Complaint:: STOMACH UPPER Self Treatment fo Chief Complaint: BAKING SODA COVID-19 Coronavirus risk:travel/contact w/high risk person: No Has patient experienced Coronavirus symptoms: No Reviewed Nurses Notes Review: Yes Source History provided by:: the patient Mode of arrival Mode of Arrival: Ambulatory Timing Onset of Chief Complaint: 07/27/20 Location Location: Epigastric Severity Severity: Moderate Quality Quality: Cramping and Sharp Context History of: None Modifying factors Worsening Factors: Nothing Improving Factors: Antacids PMH PMH Past Medical History: Yes Past Medical History: Diabetes, Hypertension and Sleep Apnea Past Surgical History: Yes Surgical History: Appendectomy, Ortho Surgery and Tonsillectomy Past Surgical History Comment: GALLBLADDER, GERD OPERATION, RIGHT ELBOW, TONSILS,CUT KNEE Family History History of Family Medical Conditions: Yes Family Medical History: Diabetes Mellitus and Hypertension Social History Alcohol Use: None Do you use any recreational Drugs:: No Lives With: Family Lives Where: Home Travel Risk Coronavirus risk:travel/contact w/high risk person: No Has patient experienced Coronavirus symptoms: No Infectious screening Have you traveled outside the country in the last 6 months?: No Isolation: Standard ROS Review of Systems Constitutional: No Symptoms Reported Eyes: No Symptoms Reported ENTM: No Symptoms Reported Respiratoy: No Symptoms Reported Cardiovascular: No Symptoms Reported Gastrointestinal/Abdominal: Abdominal Pain and Other (bloated) Genitourinary: No Symptoms Reported Neurological: No Symptoms Reported Musculoskeletal: No Symptoms Reported Integumentary: No Symptoms Reported Hematologic/Lymphatic: No Symptoms Reported Endocrine: No Symptoms Reported Psychiatric: No Symptoms Reported PE Vital Signs Vital Signs: Temp Pulse Resp BP BP Pulse Ox 07/27/20 07:06 20 07/27/20 06:06 22 07/27/20 05:35 98.1 F 86 22 149/80 97 08/26/19 21:00 158/87 General Limitations: No Limitations General Appearance: Alert and In No Apparent Distress Head Head Exam: Normal Inspection, Atraumatic and Normocephalic Eyes Eye exam: Normal Appearance, PERRL and EOMI ENT ENT Exam: Normal Exam, Normal Oropharynx, Normal External Ear Exam and Mucous Membranes Moist Neck Neck Exam: Normal Inspection, Full ROM and Trachea Midline Chest Chest Inspection: Normal Inspection and Symmetric Chest Wall Rise Respiratory Respiratory Exam: Normal Lung Sounds Bilat Cardiovascular Cardiovascular Exam: Regular Rate, Normal Rhythm, Normal Heart Sounds, +S1 and +S2 Abdominal Exam Abdominal Exam: Normal Inspection, Normal Bowel Sounds and Soft; negative Distention, Tenderness, Guarding, Rebound, Rigidity, Dimnished Bowel Sounds, Hyperactive Bowel Sounds, Hypoactive Bowel Sounds, Organomegaly, Trauma, Incision, Ascites, Mass, Bruit, Pulsatile Mass and Hernia Rectal Rectal Exam: Deferred Back Back Exam: Normal Inspection and Full ROM Extremeties Extremities Exam: Normal Inspection and Full ROM Exam: Male: Deferred Neurologic Neurological Exam: Alert and Oriented X3 Psychiatric Psychiatric Exam: Normal Affect and Normal Mood Skin Skin Exam: Dry and Normal Color COURSE Treatment Treatment: He feels better with the administered meds. His lab results were reviewed with him. He is pending to have the radiology tests done. The case will be endorsed over to Dr. Ware at shift change. Reevaluation 1st: Improved 2nd: Improved Education/Counseling Education/Counseling: Patient, Education and Counseling Educated On: Treatment, Diagnosis, Prognosis and Needs for Follow Up ROR Labs Reviewed Result Diagrams: 07/27/20 06:07 07/27/20 06:07 Laboratory: WBC 6.6 X10^3/uL (3.6-10.0) 07/27/20 06:07 RBC 5.14 X10^6/uL (4.7-6.0) 07/27/20 06:07 Hgb 15.7 g/dL (13.5-18.0) 07/27/20 06:07 Hct 45.3 % (42.0-54.0) 07/27/20 06:07 MCV 88.2 fL (80.0-100.0) 07/27/20 06:07 MCH 30.5 pg (27.0-34.0) 07/27/20 06:07 MCHC 34.6 g/dL (33.0-35.0) 07/27/20 06:07 RDW 14.1 % (11.6-16.5) 07/27/20 06:07 Plt Count 105 X10^3/uL (150.0-450.0) L 07/27/20 06:07 MPV 8.3 fL (7.4-11.0) 07/27/20 06:07 Neut % (Auto) 77.6 % (42.0-75.0) H 07/27/20 06:07 Lymph % (Auto) 15.5 % (21.0-51.0) L 07/27/20 06:07 [place] % (Auto) 5.6 % (0.0-13.0) 07/27/20 06:07 Eos % (Auto) 0.9 % (0.9-2.9) 07/27/20 06:07 Baso % (Auto) 0.4 % (0.2-1.0) 07/27/20 06:07 Neut # (Auto) 5.1 x10^3/uL (2.2-4.8) H 07/27/20 06:07 Lymph # (Auto) 1.0 X10^3/uL (1.3-2.9) L 07/27/20 06:07 [place] # (Auto) 0.4 x10^3/uL (0.3-0.8) 07/27/20 06:07 Eos # (Auto) 0.1 x10^3/uL (0.0-0.2) 07/27/20 06:07 Baso # (Auto) 0.0 X10^3/uL (0.0-0.1) 07/27/20 06:07 Absolute Nucleated RBC 0.2 /100WBC 07/27/20 06:07 Sodium 142 mmol/L (136-145) 07/27/20 06:07 Corrected Sodium 145 mmol/L (136-145) 07/27/20 06:07 Potassium 4.1 mmol/L (3.5-5.1) 07/27/20 06:07 Chloride 105 mmol/L (98-107) 07/27/20 06:07 Carbon Dioxide 25.1 mmol/L (21-32) 07/27/20 06:07 BUN 15 mg/dL (7-18) 07/27/20 06:07 Creatinine 1.25 mg/dL (0.70-1.30) 07/27/20 06:07 Est GFR (MDRD) Af Amer > 60 (>60) 07/27/20 06:07 Est GFR (MDRD) Non-Af > 60 (>60) 07/27/20 06:07 Glucose 210 mg/dL (65-99) H 07/27/20 06:07 Calcium 9.3 mg/dL (8.5-10.1) 07/27/20 06:07 Corrected Calcium TNP 07/27/20 06:07 Total Bilirubin 0.60 mg/dL (0.2-1.0) 07/27/20 06:07 AST 25 Units/L (15-37) 07/27/20 06:07 ALT 35 Units/L (12-78) 07/27/20 06:07 Alkaline Phosphatase 67 Units/L (46-116) 07/27/20 06:07 Total Protein 7.0 g/dL (6.4-8.2) 07/27/20 06:07 Albumin 3.7 g/dL (3.4-5.0) 07/27/20 06:07 Globulin 3.3 g/dL (2.5-4.5) 07/27/20 06:07 Albumin/Globulin Ratio 1.1 Ratio (1.1-2.1) 07/27/20 06:07 Amylase 30 Units/L (25-115) 07/27/20 06:07 Lipase 193 Units/L (73-393) 07/27/20 06:07 SARS CoV-2 RNA Rapid NATHALIE Negative (NEGATIVE) 07/27/20 09:54 Opioid Opioid Risk Tool Age (Markos box if 16-45): No Total: 0 Total Score Risk Category: Low Risk Copyright: [facility] predicting aberrant behaviors Diagnosis Discharge Problem: SBO (small bowel obstruction) Instructions Instructions: Soft-Food Eating Plan Hand Washing, Hbzl-[id number] Gastritis, Adult, Yqla-zy-Cxsi Esophagogastroduodenoscopy Antibiotic Medicine, Adult, Aznz-mr-Ijub Abdominal Pain, Adult, Qpax-lq-Fwav Type 2 Diabetes Mellitus, Self Care, Adult, Ueib-xx-Autg Nausea and Vomiting, Adult, Fxrs-eu-Khrb Food Choices to Help Relieve Diarrhea, Adult Hypertension, Vbqr-lm-[id number] Esophagogastroduodenoscopy, Care After Carbohydrate Counting for Diabetes Mellitus, Adult You've Been Prescribed an Antibiotic in the Hospital for an Infection - [facility] (06/2017) Managing Your Hypertension Forms: Excuse From Work or School Precautions for COVID19 Patient Portal Social Distancing
[2020-07-27] MEDS ORDERED: MYLICON TAB 80 MG CHEW PO ONE (06:12)
[2020-07-27 06:20] LABS: BASOPHILS % (AUTO) 0.4 % (0.2-1.0); EOSINOPHILS # (AUTO) 0.1 x10^3/uL (0.0-0.2); EOSINOPHILS % (AUTO) 0.9 % (0.9-2.9); HEMATOCRIT 45.3 % (42.0-54.0); HEMOGLOBIN 15.7 g/dL (13.5-18.0); LYMPHOCYTES % (AUTO) 15.5 % (21.0-51.0); MEAN CORPUSCULAR HEMOGLOBIN 30.5 pg (27.0-34.0); MEAN CORPUSCULAR HGB CONC 34.6 g/dL (33.0-35.0); MEAN CORPUSCULAR VOLUME 88.2 fL (80.0-100.0); MEAN PLATELET VOLUME 8.3 fL (7.4-11.0); MONOCYTES # (AUTO) 0.4 x10^3/uL (0.3-0.8); MONOCYTES % (AUTO) 5.6 % (0.0-13.0); NEUTROPHILS # (AUTO) 5.1 x10^3/uL (2.2-4.8); NEUTROPHILS % (AUTO) 77.6 % (42.0-75.0); PLATELET COUNT 105 X10^3/uL (150.0-450.0); RED BLOOD COUNT 5.14 X10^6/uL (4.7-6.0); RED CELL DISTRIBUTION WIDTH 14.1 % (11.6-16.5); WHITE BLOOD COUNT 6.6 X10^3/uL (3.6-10.0)
[2020-07-27 06:28] LABS: ALANINE AMINOTRANSFERASE 35 Units/L (12-78); ALBUMIN 3.7 g/dL (3.4-5.0); ALKALINE PHOSPHATASE 67 Units/L (46-116); AMYLASE 30 Units/L (25-115); ASPARTATE AMINO TRANSFERASE 25 Units/L (15-37); BLOOD UREA NITROGEN 15 mg/dL (7-18); CALCIUM 9.3 mg/dL (8.5-10.1); CARBON DIOXIDE 25.1 mmol/L (21-32); CHLORIDE 105 mmol/L (98-107); COR NA(FOR HYPERGLY) 145 mmol/L (136-145); CREATININE 1.25 mg/dL (0.70-1.30); LIPASE 193 Units/L (73-393); SODIUM 142 mmol/L (136-145); eGFR NON BLACK RACES > 60 (>60)
--- NOTE | 2020-07-27 09:11 | CT ---
HISTORYepigastric pain, nausea, vomitingSTUDYCT abdomen pelvis with contrastTechnique: Axial post-contrast images with coronal and sagittal reformats. Dose reduction procedures were used with mA/kv adjusted for body size.COMPARISONNoneFINDINGSThe lung bases are clear. The liver, spleen, adrenal glands, and pancreas are within normal limits. No opaque stones are present within the gallbladder. The kidneys are unobstructed and without stones or masses. No ureteral calculi are identified. Calcific atherosclerotic changes present in a nondilated abdominal aorta. No intraperitoneal or retroperitoneal lymphadenopathy of significance is identified. Patient appears to be status post appendectomy. There are no findings suggestive of enteritis, colitis, or diverticulitis. Diverticulosis of the descending and sigmoid colon identified. There is dilatation of the stomach, duodenal bulb, and descending duodenum proximal to an area of narrowing in the mid transverse duodenum best visualized on CT series 4 axial image 57. The narrowing is directly dorsal to the superior mesenteric artery and superior mesenteric artery syndrome may be the etiology of the partial duodenal obstruction. Other etiologies of focal narrowing of the transverse duodenum not excluded. Additionally, there is dilatation of the proximal most loop of jejunum which is of uncertain etiology as contrast passed readily into in otherwise normal appearing jejunum and on through to the normal-appearing ileum. Examination of the pelvis demonstrated no evidence for pelvic masses, pelvic fluid, or pelvic lymphadenopathy. No bladder abnormality is identified. Prostate gland is enlarged. No lytic or blastic skeletal lesions of significance are identified.IMPRESSIONDilatation of the stomach, duodenal bulb, descending duodenum and proximal most transverse duodenum proximal to an area of narrowing in the mid transverse duodenum directly dorsal to the proximal superior mesenteric artery. The partial obstruction of the mid duodenum may be due to superior mesenteric artery syndrome. However, other etiologies of focal narrowing in the transverse duodenum not excluded.Dilatation the proximal most jejunal loop but with passage of contrast into a normal appearing small bowel distal to the loop. Etiology of this dilatation is unclear. An associated incomplete rotation of small bowel or incomplete volvulus is not entirely excluded.Electronically signed by: SUBHA ATKINS (Jul 27, 2020 09:08:17)
[2020-07-27] MEDS ORDERED: ZOFRAN INJ 4 MG VIAL IVP ONE (09:47)
[2020-07-27] MEDS ORDERED: DILAUDID INJ IVP ONE (09:47)
[2020-07-27] MEDS ORDERED: NS 1000 ML 1,000 ML IV ONE (09:52)
[2020-07-27] MEDS ORDERED: NS 1000 ML 1,000 ML IV SCH (10:00)
[2020-07-27] MEDS ORDERED: DILAUDID INJ ONE (10:01)
[2020-07-27] MEDS ORDERED: ZOFRAN INJ 4 MG VIAL ONE (10:01)
[2020-07-27] MEDS ORDERED: NS 1000 ML 1,000 ML ONE (10:01)
--- NOTE | 2020-07-27 11:24 | RAD ---
HISTORYABDOMINAL PAINSTUDYACUTE x-ray ABDOMEN SERIES, one view chest and two views abdomenCOMPARISONAbdomen CT from same dayFINDINGSModerate gaseous dilation of the stomach and duodenum. Other dilated small bowel loops are seen in the left upper quadrant the abdomen. These loops appear to have wall thickening on CT and findings suggest possible gastroenteritis. Moderate right-sided constipation is seen. No air-fluid levels are seen. Excreted IV contrast is seen in the urinary bladder. Heart is normal in size. Likely mild atelectasis in the left lung base. No pneumothorax or pleural effusion is seen.IMPRESSIONLikely gastroenteritis changes. Moderate right-sided constipation.No suspicious chest abnormality is seen.Electronically signed by: Souleymane Brantley (Jul 27, 2020 11:23:36)
[2020-07-27] MEDS ORDERED: DIPRIVAN VIAL 20 ML ONE (14:21)
[2020-07-27] MEDS: FLAGYL IV PREMIX 500 MG BAG 500 MG/100 ML BAG IV SCH ×2 (15:35→22:16)
[2020-07-27] MEDS: D5 1/2 NS 1000 ML 1,000 ML IV SCH (17:38)
[2020-07-27] MEDS ORDERED: TYLENOL 500 MG TAB EXTRA STRENGTH PO PRN (18:56)
[2020-07-28] MEDS: D5 1/2 NS 1000 ML 1,000 ML IV SCH ×3 (02:11→11:51)
--- NOTE | 2020-07-28 05:05 | RAD ---
PROCEDURE: Acute Abdomen Series .HISTORY: Partial small bowel obstruction.TECHNIQUE: AP supine and upright abdomen with AP chest x-ray views .COMPARISON: 07/27/2020.TECHNICAL QUALITY: Satisfactory .FINDINGS:Chest x-ray shows clear lungs and normal size heart.No pneumoperitoneum.Mild gas and feces in the colon possibly with some contrast with no distention. No obstruction or ileus.Some contrast in diverticula in the pelvis.No abnormal calcifications.No organomegaly.No acute bony abnormality.IMPRESSION:1. Nonspecific bowel gas pattern.2. No active cardiopulmonary disease.Electronically signed by: Malachi Quick (Jul 28, 2020 05:03:45)
[2020-07-28] MEDS: FLAGYL IV PREMIX 500 MG BAG 500 MG/100 ML BAG IV SCH (06:02)
--- NOTE | 2020-07-28 10:11 | DR.PROGNOT ---
Hospital Progress Notes - Progress Note for Day of: Progress Note Date: 07/28/20 - Chief Complaint Chief Complaint: no abdominal pain this am . no nausea or vomiting . abdominal xray was read as normal . CBC, LFT were normal - Past Medical Family Social History Past Med/Fam/Surg Hx: No changes since H&P Allergies: Allergies codeine Allergy (Verified 08/26/19 19:07) gluten Allergy (Verified 08/26/19 19:07) ibuprofen Allergy (Verified 07/27/20 12:03) morphine Allergy (Verified 08/26/19 19:07) wheat Allergy (Verified 07/27/20 11:18) BEE STINGS Allergy (Uncoded 10/09/17 19:30) - Review Of Systems ROS: No change since H&P - Vital Signs Vital Signs: Temperature 97.7 F Pulse Rate [Left Brachial] 62 Pulse Rate 68 Respiratory Rate 20 Blood Pressure [Left Arm] 152/78 Blood Pressure 164/90 O2 Sat by Pulse Oximetry 94 - Physical Exam Oriented: Normal Eyes: Normal Ear: Normal Nose: Normal Respiratory: Normal Cardiovascular: Normal : Normal GI:Auscultation: Normal GI:Palpation: Normal GI: Tenderness: Diffuse, Epigastric (mild epigastric tenderness . no rebound .. BS+) Mood Description: Calm, Happy, Appropriate Speech Pattern: Clear, Appropriate - Laboratory and Diagnostics Result Diagrams: 07/27/20 06:07 07/27/20 06:07 Labs: Laboratory WBC 6.6 X10^3/uL (3.6-10.0) 07/27/20 06:07 RBC 5.14 X10^6/uL (4.7-6.0) 07/27/20 06:07 Hgb 15.7 g/dL (13.5-18.0) 07/27/20 06:07 Hct 45.3 % (42.0-54.0) 07/27/20 06:07 MCV 88.2 fL (80.0-100.0) 07/27/20 06:07 MCH 30.5 pg (27.0-34.0) 07/27/20 06:07 MCHC 34.6 g/dL (33.0-35.0) 07/27/20 06:07 RDW 14.1 % (11.6-16.5) 07/27/20 06:07 Plt Count 105 X10^3/uL (150.0-450.0) L 07/27/20 06:07 MPV 8.3 fL (7.4-11.0) 07/27/20 06:07 Neut % (Auto) 77.6 % (42.0-75.0) H 07/27/20 06:07 Lymph % (Auto) 15.5 % (21.0-51.0) L 07/27/20 06:07 [place] % (Auto) 5.6 % (0.0-13.0) 07/27/20 06:07 Eos % (Auto) 0.9 % (0.9-2.9) 07/27/20 06:07 Baso % (Auto) 0.4 % (0.2-1.0) 07/27/20 06:07 Neut # (Auto) 5.1 x10^3/uL (2.2-4.8) H 07/27/20 06:07 Lymph # (Auto) 1.0 X10^3/uL (1.3-2.9) L 07/27/20 06:07 [place] # (Auto) 0.4 x10^3/uL (0.3-0.8) 07/27/20 06:07 Eos # (Auto) 0.1 x10^3/uL (0.0-0.2) 07/27/20 06:07 Baso # (Auto) 0.0 X10^3/uL (0.0-0.1) 07/27/20 06:07 Absolute Nucleated RBC 0.2 /100WBC 07/27/20 06:07 Sodium 142 mmol/L (136-145) 07/27/20 06:07 Corrected Sodium 145 mmol/L (136-145) 07/27/20 06:07 Potassium 4.1 mmol/L (3.5-5.1) 07/27/20 06:07 Chloride 105 mmol/L (98-107) 07/27/20 06:07 Carbon Dioxide 25.1 mmol/L (21-32) 07/27/20 06:07 BUN 15 mg/dL (7-18) 07/27/20 06:07 Creatinine 1.25 mg/dL (0.70-1.30) 07/27/20 06:07 Est GFR (MDRD) Af Amer > 60 (>60) 07/27/20 06:07 Est GFR (MDRD) Non-Af > 60 (>60) 07/27/20 06:07 Glucose 210 mg/dL (65-99) H 07/27/20 06:07 POC Glucose (mg/dL) 183 mg/dL (65-99) H 07/28/20 05:07 Calcium 9.3 mg/dL (8.5-10.1) 07/27/20 06:07 Corrected Calcium TNP 07/27/20 06:07 Total Bilirubin 0.60 mg/dL (0.2-1.0) 07/27/20 06:07 AST 25 Units/L (15-37) 07/27/20 06:07 ALT 35 Units/L (12-78) 07/27/20 06:07 Alkaline Phosphatase 67 Units/L (46-116) 07/27/20 06:07 Total Protein 7.0 g/dL (6.4-8.2) 07/27/20 06:07 Albumin 3.7 g/dL (3.4-5.0) 07/27/20 06:07 Globulin 3.3 g/dL (2.5-4.5) 07/27/20 06:07 Albumin/Globulin Ratio 1.1 Ratio (1.1-2.1) 07/27/20 06:07 Amylase 30 Units/L (25-115) 07/27/20 06:07 Lipase 193 Units/L (73-393) 07/27/20 06:07 Stl C. diff Tox B Gene Negative (NEGATIVE) 07/28/20 07:35 Stl C. diff [id number] Negative (NEGATIVE) 07/28/20 07:35 SARS CoV-2 RNA Rapid NATHALIE Negative (NEGATIVE) 07/27/20 09:54 Tissue Pathology To follow 07/27/20 14:29 - Assessment and Plan 1: subsiding bowel obstruction ( at the duodenal level .. possible superior mesenteric artery syndrome ). to advance diet this am and maybe d/c if filomena erating that . - Problem Patient Problems: Patient Problems SBO (small bowel obstruction) (Acute) K56.281
[2020-07-28 10:19] LABS: IRON 55 ug/dL (50-175)
[2020-07-28 11:55] VITALS: BP 156/70
== END 2020-07-28 14:15 | disposition home or self-care (01) ==
LOC: ER 05:32 → MED/SURG 05:32
PROVIDERS: ADMIT Obstetrics & Gynecology Obstetrics; ATTEND Obstetrics & Gynecology Obstetrics
DX: Z20.822 Contact with and (suspected) exposure to COVID-19; K59.09 Other constipation; I10 Essential (primary) hypertension; R11.2 Nausea with vomiting, unspecified; R94.31 Abnormal electrocardiogram [ECG] [EKG]; R10.13 Epigastric pain; R13.11 Dysphagia, oral phase; K56.690 Other partial intestinal obstruction; E11.65 Type 2 diabetes mellitus with hyperglycemia

== ENCOUNTER 2023-09-22 09:24 | Inpatient (IN) ==
--- NOTE | 2023-09-22 09:32 | DR.ABDMALE ---
HPI Time seen Time Seen by Provider: 09/22/23 09:30 COVID-19 Coronavirus risk:travel/contact w/high risk person: No Has patient experienced Coronavirus symptoms: No Reviewed Nurses Notes Review: Yes Source History provided by:: patient [facility] Past Medical History: Diabetes, Hypertension and Sleep Apnea Past Surgical History: Yes Surgical History: Appendectomy, Ortho Surgery and Tonsillectomy Family History Family Medical History: Diabetes Mellitus Social History Do you use any recreational Drugs:: No ROS Review of Systems Constitutional: No Symptoms Reported Eyes: No Symptoms Reported ENTM: No Symptoms Reported Respiratoy: No Symptoms Reported Cardiovascular: No Symptoms Reported Gastrointestinal/Abdominal: No Symptoms Reported Genitourinary: No Symptoms Reported Neurological: No Symptoms Reported Musculoskeletal: No Symptoms Reported and Elbow (Left elbow pustule, redness and pain ) Integumentary: No Symptoms Reported Hematologic/Lymphatic: No Symptoms Reported Endocrine: No Symptoms Reported Psychiatric: No Symptoms Reported All Other Systems: Reviewed and Negative PE Vital Signs Vital Signs: Temp Pulse Resp BP Pulse Ox O2 Del Method 09/22/23 10:02 20 09/22/23 09:25 97.9 F 81 20 130/69 99 Room Air General Limitations: No Limitations General Appearance: Alert and In No Apparent Distress Head Head Exam: Normal Inspection Eyes Eye exam: Normal Appearance; negative Scleral Icterus or Conjunctival Injection ENT ENT Exam: Normal Exam, Normal Oropharynx, Normal External Ear Exam and TM's Normal Bilaterally Neck Neck Exam: Normal Inspection and Trachea Midline; negative Tenderness ROR Labs Reviewed 09/22/23 09:53 09/22/23 09:53 Laboratory: WBC 4.4 X10^3/uL (3.6-10.0) 09/22/23 09:53 RBC 4.51 X10^6/uL (4.7-6.0) L 09/22/23 09:53 Hgb 11.4 g/dL (13.5-18.0) L 09/22/23 09:53 Hct 35.2 % (42.0-54.0) L 09/22/23 09:53 MCV 78.1 fL (80.0-100.0) L 09/22/23 09:53 MCH 25.3 pg (27.0-34.0) L 09/22/23 09:53 MCHC 32.5 g/dL (33.0-35.0) L 09/22/23 09:53 RDW 16.2 % (11.6-16.5) 09/22/23 09:53 Plt Count 124 X10^3/uL (150.0-450.0) L 09/22/23 09:53 MPV 8.5 fL (7.4-11.0) 09/22/23 09:53 Neut % (Auto) 79.5 % (42.0-75.0) H 09/22/23 09:53 Lymph % (Auto) 12.6 % (21.0-51.0) L 09/22/23 09:53 [place] % (Auto) 7.4 % (0.0-13.0) 09/22/23 09:53 Eos % (Auto) 0.2 % (0.9-2.9) L 09/22/23 09:53 Baso % (Auto) 0.3 % (0.2-1.0) 09/22/23 09:53 Neut # (Auto) 3.5 x10^3/uL (2.2-4.8) 09/22/23 09:53 Lymph # (Auto) 0.6 X10^3/uL (1.3-2.9) L 09/22/23 09:53 [place] # (Auto) 0.3 x10^3/uL (0.3-0.8) 09/22/23 09:53 Eos # (Auto) 0.0 x10^3/uL (0.0-0.2) 09/22/23 09:53 Baso # (Auto) 0.0 X10^3/uL (0.0-0.1) 09/22/23 09:53 Absolute Nucleated RBC 0.1 /100WBC 09/22/23 09:53 Sodium 135 mmol/L (136-145) L 09/22/23 09:53 Corrected Sodium 139 mmol/L (136-145) 09/22/23 09:53 Potassium 4.0 mmol/L (3.5-5.1) 09/22/23 09:53 Chloride 101 mmol/L (98-107) 09/22/23 09:53 Carbon Dioxide 22.5 mmol/L (21-32) 09/22/23 09:53 BUN 24 mg/dL (7-18) H 09/22/23 09:53 Creatinine 1.26 mg/dL (0.70-1.30) 09/22/23 09:53 Est GFR (MDRD) Af Amer > 60 (>60) 09/22/23 09:53 Est GFR (MDRD) Non-Af > 60 (>60) 09/22/23 09:53 Glucose 283 mg/dL (65-99) H 09/22/23 09:53 Calcium 8.5 mg/dL (8.5-10.1) 09/22/23 09:53 Corrected Calcium 9.1 mg/dL (8.5-10.1) 09/22/23 09:53 Total Bilirubin 1.30 mg/dL (0.2-1.0) H 09/22/23 09:53 AST 15 Units/L (15-37) 09/22/23 09:53 ALT 19 Units/L (12-78) 09/22/23 09:53 Alkaline Phosphatase 64 Units/L (46-116) 09/22/23 09:53 Total Protein 6.6 g/dL (6.4-8.2) 09/22/23 09:53 Albumin 3.2 g/dL (3.4-5.0) L 09/22/23 09:53 Globulin 3.4 g/dL (2.5-4.5) 09/22/23 09:53 Albumin/Globulin Ratio 0.9 Ratio (1.1-2.1) L 09/22/23 09:53 Amylase 13 Units/L (25-115) L 09/22/23 09:53 Lipase 38 Units/L (16-77) 09/22/23 09:53 Specimen Type Clean catch urine 09/22/23 10:37 Urine Color Yellow (YELLOW) 09/22/23 10:37 Urine Appearance Clear (CLEAR) 09/22/23 10:37 Urine pH 6.0 (5.0 - 8.0) 09/22/23 10:37 Ur Specific [place] 1.015 (1.000-1.030) 09/22/23 10:37 Urine Protein 2+ (NEGATIVE) 09/22/23 10:37 Urine Glucose (UA) 4+ (NEGATIVE) 09/22/23 10:37 Urine Ketones Negative (NEGATIVE) 09/22/23 10:37 Urine Blood Negative (NEGATIVE) 09/22/23 10:37 Urine Nitrite Negative (NEGATIVE) 09/22/23 10:37 Urine Bilirubin Negative (NEGATIVE) 09/22/23 10:37 Urine Urobilinogen Normal (NORMAL) 09/22/23 10:37 Ur Leukocyte Esterase Negative (NEGATIVE) 09/22/23 10:37 Urine RBC None seen /HPF (0-3) 09/22/23 10:37 Urine WBC None seen /HPF (0-5) 09/22/23 10:37 Ur Squamous Epith Cells Rare /HPF (NEGATIVE) 09/22/23 10:37 Urine Bacteria Negative /HPF (NEGATIVE) 09/22/23 10:37 Ur Culture Indicated? No/not indicated 09/22/23 10:37 Opioid Opioid Risk Tool Age (Markos box if 16-45): No History of Preadolescent Sexual Abuse: No Total: 0 Total Score Risk Category: Low Risk Copyright: [facility] predicting aberrant behaviors Discharge Plan Discharge Plan Patient Disposition: ADMITTED INPATIENT Condition: Stable Orders to Discharge Patient Discharge Orders: Transfer (Routine); Ordered 09/22/23 Ordered By: CHARLIE LAGOS
[2023-09-22] MEDS: ZOFRAN INJ 4 MG VIAL IVP ONE (10:02)
[2023-09-22] MEDS: DEMEROL INJ IVP ONE (10:02)
[2023-09-22 10:03] LABS: BASOPHILS % (AUTO) 0.3 % (0.2-1.0); EOSINOPHILS % (AUTO) 0.2 % (0.9-2.9); HEMATOCRIT 35.2 % (42.0-54.0); HEMOGLOBIN 11.4 g/dL (13.5-18.0); LYMPHOCYTES # (AUTO) 0.6 X10^3/uL (1.3-2.9); LYMPHOCYTES % (AUTO) 12.6 % (21.0-51.0); MEAN CORPUSCULAR HEMOGLOBIN 25.3 pg (27.0-34.0); MEAN CORPUSCULAR HGB CONC 32.5 g/dL (33.0-35.0); MEAN CORPUSCULAR VOLUME 78.1 fL (80.0-100.0); MEAN PLATELET VOLUME 8.5 fL (7.4-11.0); MONOCYTES # (AUTO) 0.3 x10^3/uL (0.3-0.8); MONOCYTES % (AUTO) 7.4 % (0.0-13.0); NEUTROPHILS # (AUTO) 3.5 x10^3/uL (2.2-4.8); NEUTROPHILS % (AUTO) 79.5 % (42.0-75.0); PLATELET COUNT 124 X10^3/uL (150.0-450.0); RED BLOOD COUNT 4.51 X10^6/uL (4.7-6.0); RED CELL DISTRIBUTION WIDTH 16.2 % (11.6-16.5); WHITE BLOOD COUNT 4.4 X10^3/uL (3.6-10.0)
[2023-09-22] MEDS: PEPCID 20 MG VIAL 20 MG in NS 50 ML IV 50 ML IV ONE (10:07)
[2023-09-22] MEDS: NS 1,000 ML IV 1,000 ML IV SCH (10:07)
[2023-09-22 10:16] LABS: ALANINE AMINOTRANSFERASE 19 Units/L (12-78); ALBUMIN 3.2 g/dL (3.4-5.0); ALKALINE PHOSPHATASE 64 Units/L (46-116); AMYLASE 13 Units/L (25-115); ASPARTATE AMINO TRANSFERASE 15 Units/L (15-37); BLOOD UREA NITROGEN 24 mg/dL (7-18); CALCIUM 8.5 mg/dL (8.5-10.1); CARBON DIOXIDE 22.5 mmol/L (21-32); CHLORIDE 101 mmol/L (98-107); COR CA(FOR HYPOALB) 9.1 mg/dL (8.5-10.1); COR NA(FOR HYPERGLY) 139 mmol/L (136-145); CREATININE 1.26 mg/dL (0.70-1.30); GLUCOSE 283 mg/dL (65-99); LIPASE 38 Units/L (16-77); SODIUM 135 mmol/L (136-145); TOTAL PROTEIN 6.6 g/dL (6.4-8.2); eGFR NON BLACK RACES > 60 (>60)
[2023-09-22 10:45] LABS: BILIRUBIN,URINE NEGATIVE (NEGATIVE); BLOOD/HEMOGLOBIN,URINE NEGATIVE (NEGATIVE); GLUCOSE, URINE 4+ (NEGATIVE); KETONES,URINE NEGATIVE (NEGATIVE); LEUKOCYTE ESTERASE ,URINE NEGATIVE (NEGATIVE); NITRITES,URINE NEGATIVE (NEGATIVE); PROTEIN,URINE 2+ (NEGATIVE); UROBILINOGEN,URINE NORMAL (NORMAL)
[2023-09-22 10:46] LABS: APPEARANCE,URINE CLEAR (CLEAR); COLOR,URINE YELLOW (YELLOW)
--- NOTE | 2023-09-22 11:00 | CT ---
EXAM:ABDOMEN/PELVIS W/O CONHISTORY:Patient states he has hx of diarrhea, but he has had retal bleeding x 7 day. He states he started having abdominal pain x 3 days ago, with fever, chills, and fever yesterday.;COMPARISON:07/28/2023TECHNIQUE: r.br reduction procedures were used with mA/kv adjusted for body size. This examination is limited due to the lack of intravenous and oral contrast. The examination was performed in this manner at the sole direction of the ordering caregiverFINDINGS:Lung bases are clear. Liver, spleen, adrenal glands, and pancreas are within normal limits but only to the limitations of an unenhanced examination. No opaque stones are present within the gallbladder. Kidneys are unobstructed and without stones. No ureteral calculi are identified. Appendix is not identified. There are no secondary signs of appendicitis present. Calcific atherosclerotic changes present in the nondilated abdominal aorta. No intraperitoneal or retroperitoneal lymphadenopathy of significance is identified. There are no findings suggestive of colitis or diverticulitis. Diverticulosis of the descending and sigmoid colon identified. However there is marked dilatation of the jejunum and ileum proximal to a narrowed segment of small bowel in the right lower quadrant best visualized on axial series 3 images 70-73. This suggest partial small bowel obstruction. A large number of these dilated loops demonstrate fairly extensive fecalization of intraluminal contents which suggest chronicity in this may represent a chronic process with superimposed acute exacerbation. Etiology of the narrowing is unclear adhesion and volvulus possible. Surgical evaluation is recommended. Examination of the pelvis demonstrated no evidence for pelvic masses, pelvic fluid, or pelvic lymphadenopathy. No bladder abnormalities identified. Prostate gland is markedly enlarged measuring 5.6 x 5.1 x 4.5 cm. There has an uncomplicated fat containing right inguinal hernia present. No lytic or blastic skeletal lesions are identified.IMPRESSION:Partial likely distal ileal small bowel obstruction proximal to a segment narrowed small bowel in the right lower quadrant. Many of the dilated loops of small bowel proximal to this narrow segment demonstrate extensive fecalization of contents suggesting a chronic problem with superimposed acute exacerbation. Etiology of this narrowed loop is unclear at this time. Adhesion and volvulus possible. Surgical evaluation recommended.Markedly enlarged prostate glandTHIS IS AN ELECTRONICALLY VERIFIED FINAL REPORT09/22/2023 10:56 AM - Electronically signed by Gen Triplett MD
[2023-09-22 11:22] LABS: BACTERIA,URINE NEGATIVE /HPF (NEGATIVE); RBC,URINE NONE SEEN /HPF (0-3); SQUAMOUS EPITHELIAL CELL,UR RARE /HPF (NEGATIVE)
[2023-09-22] MEDS: PROTONIX INJ 40 MG VIAL 80 MG in NS 100 ML IV 80 ML IV SCH (12:40)
[2023-09-22] MEDS ORDERED: ZOFRAN INJ 4 MG VIAL IVP PRN (16:31)
--- NOTE | 2023-09-22 21:09 | RAD ---
EXAM: ABDOMEN X-RAY (or KUB)HISTORY: NG tube placement verification.TECHNIQUE: Supine viewCOMPARISON: None.FINDINGS:A nasogastric tube is noted in situ with the distal tip approximately 3 cm distal to the gastroesophageal junction. Recommend further advancement of the stomach (at least 9 cm) assuming normal gastric anatomy).There are up to 5.2 cm dilated small bowel loops in the abdomen, in keeping with high-grade small bowel obstruction in the appropriate clinical setting.There is no gross organomegaly, free intraperitoneal air, or suspicious calcifications seen. There is an approximately 8.3 mm left pelvic calcification in keeping with a phlebolith, but cannot rule out urolithiasis in the appropriate clinical setting.Multilevel DDD is seen throughout the distal thoracic and distal lumbar spine. The visualized bony structures are otherwise within normal limits.IMPRESSION:1. A nasogastric tube is noted in situ with the distal tip approximately 3 cm distal to the gastroesophageal junction. Recommend further advancement of the stomach (at least 9 cm) assuming normal gastric anatomy).2. Up to 5.2 cm dilated small bowel loops in the abdomen, in keeping with high-grade small bowel obstruction in the appropriate clinical setting.3. Approximately 8.3 mm left pelvic calcification in keeping with a phlebolith, but cannot rule out urolithiasis in the appropriate clinical setting.4. Consider follow-up evaluation with CT for confirmation and further characterization as clinically warranted.THIS IS AN ELECTRONICALLY VERIFIED FINAL REPORT09/22/2023 9:05 PM - Electronically signed by Johnathan Harvey MD
[2023-09-22 22:25] VITALS: BMI 24.4
--- NOTE | 2023-09-22 23:13 | DR.H&P ---
H&P History & Physical for Day of: H&P Date: 09/22/23 Chief Complaint Chief Complaint: abdominal pain, nausea and vomiting and diarrhea History of Present Illness History of Present Illness: 68 yo male with several day history of abdominal pain with distention and diarrhea , Evaluated in ER and CT scan consistent with distal small bowel obstruction. Has history of appendectomy in the past. Had negative colonscopy 6 months ago. History of TIA in the past. Past Medical History Past Medical History: Diabetes, Hypertension and Sleep Apnea Past Surgical History Surgical History: Appendectomy, Ortho Surgery (right forearm) and Tonsillectomy Family History Family Medical History: Diabetes Mellitus Social History Does patient currently use any type of tobacco product: No Have you used tobacco products in the last 12 months: No Type of Tobacco Use: None Does any household member use tobacco: No Alcohol Use: None Drug Use: None Medications Home Medications: Home Medications Medication Instructions Recorded Confirmed Type ascorbic acid (vitamin C) 500 mg 500 mg PO QDAY 09/22/23 09/22/23 History tablet atorvastatin 10 mg tablet 40 mg PO DAILY 09/22/23 09/22/23 History bisoprolol fumarate 5 mg tablet 5 mg PO QDAY 09/22/23 09/22/23 History clotrimazole 1 % topical cream 1 applic topical BID 09/22/23 09/22/23 History desonide 0.05 % topical cream 1 applic topical BID 09/22/23 09/22/23 History diclofenac sodium 1 % topical gel 2 g topical QID 09/22/23 09/22/23 History ferrous sulfate 325 mg (65 mg 325 mg PO QDAY 09/22/23 09/22/23 History iron) tablet insulin glargine-yfgn 100 unit/mL 26 unit subcut QDAY 09/22/23 09/22/23 History subcutaneous solution ketoconazole 2 % shampoo 1 applic topical 2XW 09/22/23 09/22/23 History ketoconazole 2 % topical cream 1 applic topical BID 09/22/23 09/22/23 History levothyroxine 75 mcg tablet 75 mcg PO QDAY 09/22/23 09/22/23 History metformin 500 mg tablet 500 mg PO BID 09/22/23 09/22/23 History niacin 500 mg tablet 500 mg PO BID 09/22/23 09/22/23 History nitroglycerin 0.4 mg sublingual 0.4 mg sublingual Q5M PRN 09/22/23 09/22/23 History tablet pioglitazone 45 mg tablet 45 mg PO QDAY 09/22/23 09/22/23 History psyllium 1 packet PO QDAY 09/22/23 09/22/23 History semaglutide (weight loss) 1.7 1 mg subcut QWEEK 09/22/23 09/22/23 History mg/0.75 mL subcutaneous pen injector Allergies Allergies Allergy/AdvReac Type Severity Reaction Status Date / Time codeine Allergy Verified 08/26/19 19:07 gluten Allergy Verified 08/26/19 19:07 ibuprofen Allergy Verified 07/27/20 12:03 morphine Allergy Verified 08/26/19 19:07 wheat Allergy Verified 07/27/20 11:18 BEE STINGS Allergy Uncoded 10/09/17 19:30 Labs 09/22/23 09:53 09/22/23 09:53 Labs: Laboratory WBC 4.4 X10^3/uL (3.6-10.0) 09/22/23 09:53 RBC 4.51 X10^6/uL (4.7-6.0) L 09/22/23 09:53 Hgb 11.4 g/dL (13.5-18.0) L 09/22/23 09:53 Hct 35.2 % (42.0-54.0) L 09/22/23 09:53 MCV 78.1 fL (80.0-100.0) L 09/22/23 09:53 MCH 25.3 pg (27.0-34.0) L 09/22/23 09:53 MCHC 32.5 g/dL (33.0-35.0) L 09/22/23 09:53 RDW 16.2 % (11.6-16.5) 09/22/23 09:53 Plt Count 124 X10^3/uL (150.0-450.0) L 09/22/23 09:53 MPV 8.5 fL (7.4-11.0) 09/22/23 09:53 Neut % (Auto) 79.5 % (42.0-75.0) H 09/22/23 09:53 Lymph % (Auto) 12.6 % (21.0-51.0) L 09/22/23 09:53 [place] % (Auto) 7.4 % (0.0-13.0) 09/22/23 09:53 Eos % (Auto) 0.2 % (0.9-2.9) L 09/22/23 09:53 Baso % (Auto) 0.3 % (0.2-1.0) 09/22/23 09:53 Neut # (Auto) 3.5 x10^3/uL (2.2-4.8) 09/22/23 09:53 Lymph # (Auto) 0.6 X10^3/uL (1.3-2.9) L 09/22/23 09:53 [place] # (Auto) 0.3 x10^3/uL (0.3-0.8) 09/22/23 09:53 Eos # (Auto) 0.0 x10^3/uL (0.0-0.2) 09/22/23 09:53 Baso # (Auto) 0.0 X10^3/uL (0.0-0.1) 09/22/23 09:53 Absolute Nucleated RBC 0.1 /100WBC 09/22/23 09:53 Sodium 135 mmol/L (136-145) L 09/22/23 09:53 Corrected Sodium 139 mmol/L (136-145) 09/22/23 09:53 Potassium 4.0 mmol/L (3.5-5.1) 09/22/23 09:53 Chloride 101 mmol/L (98-107) 09/22/23 09:53 Carbon Dioxide 22.5 mmol/L (21-32) 09/22/23 09:53 BUN 24 mg/dL (7-18) H 09/22/23 09:53 Creatinine 1.26 mg/dL (0.70-1.30) 09/22/23 09:53 Est GFR (MDRD) Af Amer > 60 (>60) 09/22/23 09:53 Est GFR (MDRD) Non-Af > 60 (>60) 09/22/23 09:53 Glucose 283 mg/dL (65-99) H 09/22/23 09:53 Calcium 8.5 mg/dL (8.5-10.1) 09/22/23 09:53 Corrected Calcium 9.1 mg/dL (8.5-10.1) 09/22/23 09:53 Total Bilirubin 1.30 mg/dL (0.2-1.0) H 09/22/23 09:53 AST 15 Units/L (15-37) 09/22/23 09:53 ALT 19 Units/L (12-78) 09/22/23 09:53 Alkaline Phosphatase 64 Units/L (46-116) 09/22/23 09:53 Total Protein 6.6 g/dL (6.4-8.2) 09/22/23 09:53 Albumin 3.2 g/dL (3.4-5.0) L 09/22/23 09:53 Globulin 3.4 g/dL (2.5-4.5) 09/22/23 09:53 Albumin/Globulin Ratio 0.9 Ratio (1.1-2.1) L 09/22/23 09:53 Amylase 13 Units/L (25-115) L 09/22/23 09:53 Lipase 38 Units/L (16-77) 09/22/23 09:53 Specimen Type Clean catch urine 09/22/23 10:37 Urine Color Yellow (YELLOW) 09/22/23 10:37 Urine Appearance Clear (CLEAR) 09/22/23 10:37 Urine pH 6.0 (5.0 - 8.0) 09/22/23 10:37 Ur Specific [place] 1.015 (1.000-1.030) 09/22/23 10:37 Urine Protein 2+ (NEGATIVE) 09/22/23 10:37 Urine Glucose (UA) 4+ (NEGATIVE) 09/22/23 10:37 Urine Ketones Negative (NEGATIVE) 09/22/23 10:37 Urine Blood Negative (NEGATIVE) 09/22/23 10:37 Urine Nitrite Negative (NEGATIVE) 09/22/23 10:37 Urine Bilirubin Negative (NEGATIVE) 09/22/23 10:37 Urine Urobilinogen Normal (NORMAL) 09/22/23 10:37 Ur Leukocyte Esterase Negative (NEGATIVE) 09/22/23 10:37 Urine RBC None seen /HPF (0-3) 09/22/23 10:37 Urine WBC None seen /HPF (0-5) 09/22/23 10:37 Ur Squamous Epith Cells Rare /HPF (NEGATIVE) 09/22/23 10:37 Urine Bacteria Negative /HPF (NEGATIVE) 09/22/23 10:37 Ur Culture Indicated? No/not indicated 09/22/23 10:37 Stool Occult Blood Positive (NEGATIVE) A 09/22/23 12:34 Review of Systems Constitutional: See HPI Eyes: No Symptoms Reported ENT: No Symptoms Reported Respiratory: No Symptoms Reported Cardiovascular: No Symptoms Reported Gastrointestinal: See HPI Genitourinary: No Symptoms Reported Musculoskeletal: See HPI Skin: No Symptoms Reported Neurological: No Symptoms Reported Physical Exam Vital Signs: Vital Signs Temperature 98.3 F Temperature 97.6 F Pulse Rate [Left Radial] 83 Pulse Rate [Left Radial] 80 Respiratory Rate 20 Respiratory Rate 19 Blood Pressure [Left Arm] 158/87 Blood Pressure [Left Arm] 137/76 O2 Sat by Pulse Oximetry 97 O2 Sat by Pulse Oximetry 94 Oriented: Normal, Time, Person and Place Eyes: Normal Ear: Normal Nose: Normal Throat: Normal Cardiovascular: Normal : Normal Auscultation: Bowel Sounds: Absent Palpation: Other (mild distention, not tender) Tenderness: Normal Skin: Normal Musculoskeletal: Right (right forearm in splint ) and Forearm Psychiatric: Normal Mood Description: Calm Affect: Normal Speech Pattern: Clear and Appropriate Assessment/Plan (1) SBO (small bowel obstruction): Status: Acute Plan: AAS showed large stonach distention, NG placed to Low wall suction. Will plan IV hydration and NG tube with sequential exams and abdominal series. (2) Type 2 diabetes mellitus without complications: Status: Acute Plan: sliding scale insulin (3) Essential (primary) hypertension: Status: Acute Plan: ? home medications
[2023-09-23] MEDS: DEMEROL INJ IVP PRN ×2 (01:58→08:29)
[2023-09-23 05:06] LABS: BASOPHILS % (AUTO) 0.3 % (0.2-1.0); EOSINOPHILS % (AUTO) 0.8 % (0.9-2.9); HEMOGLOBIN 10.1 g/dL (13.5-18.0); LYMPHOCYTES # (AUTO) 0.7 X10^3/uL (1.3-2.9); LYMPHOCYTES % (AUTO) 17.6 % (21.0-51.0); MEAN CORPUSCULAR HEMOGLOBIN 25.3 pg (27.0-34.0); MEAN CORPUSCULAR HGB CONC 32.5 g/dL (33.0-35.0); MEAN CORPUSCULAR VOLUME 77.8 fL (80.0-100.0); MEAN PLATELET VOLUME 8.6 fL (7.4-11.0); MONOCYTES # (AUTO) 0.4 x10^3/uL (0.3-0.8); MONOCYTES % (AUTO) 9.7 % (0.0-13.0); NEUTROPHILS # (AUTO) 2.7 x10^3/uL (2.2-4.8); NEUTROPHILS % (AUTO) 71.6 % (42.0-75.0); PLATELET COUNT 115 X10^3/uL (150.0-450.0); RED BLOOD COUNT 3.98 X10^6/uL (4.7-6.0); RED CELL DISTRIBUTION WIDTH 15.9 % (11.6-16.5); WHITE BLOOD COUNT 3.8 X10^3/uL (3.6-10.0)
[2023-09-23 05:17] LABS: ALANINE AMINOTRANSFERASE 17 Units/L (12-78); ALBUMIN 2.7 g/dL (3.4-5.0); ALKALINE PHOSPHATASE 41 Units/L (46-116); AMYLASE 13 Units/L (25-115); ASPARTATE AMINO TRANSFERASE 15 Units/L (15-37); BLOOD UREA NITROGEN 13 mg/dL (7-18); CALCIUM 7.7 mg/dL (8.5-10.1); CARBON DIOXIDE 24.6 mmol/L (21-32); CHLORIDE 109 mmol/L (98-107); COR CA(FOR HYPOALB) 8.7 mg/dL (8.5-10.1); COR NA(FOR HYPERGLY) 144 mmol/L (136-145); CREATININE 0.96 mg/dL (0.70-1.30); GLUCOSE 128 mg/dL (65-99); LIPASE 28 Units/L (16-77); POTASSIUM 3.7 mmol/L (3.5-5.1); SODIUM 143 mmol/L (136-145); TOTAL PROTEIN 5.6 g/dL (6.4-8.2); eGFR NON BLACK RACES > 60 (>60)
--- NOTE | 2023-09-23 07:53 | RAD ---
EXAM: Acute abdominal series three views HISTORY: Small-bowel obstruction COMPARISON: 09/22/[address] abdomen pelvis FINDINGS: There is a nasogastric tube present with its tip and side port just distal to the gastroesophageal junction within the stomach. Advancement is recommended. Heart is minimally enlarged. No congestiv e heart failure is noted. Lung hanley are clear. Examination of the abdomen demonstrates apparent r esolution of the previously noted dilated small bowel loops however it should be noted that many of t he dilated small bowel loops on the recent CT were predominantly fluid-filled and may not be visible on plain film. CT follow-up may be required. Gas is present throughout the colon. No abnormal mass es or abnormal calcifications are identified. No pneumoperitoneum is identified. Regional skeleton is intact. IMPRESSION: Lungs clear Nasogastric tube tip and side port just distal to the esophageal junction. Advancement should be con sidered for optimal performance Apparent resolution of the dilated air-filled small bowel loops present on the prior examination mercado herson it should be noted that the predominance of the dilated small bowel loops on the recent CT were f luid-filled and may not be visible on plain film. Follow-up CT may be required. THIS IS AN ELECTRONICALLY VERIFIED FINAL REPORT 09/23/2023 7:50 AM - Electronically signed by Gen Triplett MD
[2023-09-23] MEDS ORDERED: CONSULT PHARMACY - POTASSIUM & MAGNESIUM XX SCH ×2 (09:00→20:00)
--- NOTE | 2023-09-23 20:40 | RAD ---
EXAM: ABDOMEN X-RAY (or KUB) HISTORY: Nasogastric tube verification status post placement. TECHNIQUE: Supine view COMPARISON: None. FINDINGS: Nasogastric tube is noted with the distal tip within the distal body of the stomach (superimposed on the head of the right 11th rib). The bowel gas pattern is nonspecific and nonobstructive. There is no gross organomegaly, free intrap eritoneal air, or suspicious calcifications seen. The visualized bony structures are within normal l imits. IMPRESSION: 1. Nasogastric tube is noted with the distal tip within the distal body of the stomach (superimposed on the head of the right 11th rib). THIS IS AN ELECTRONICALLY VERIFIED FINAL REPORT 09/23/2023 8:37 PM - Electronically signed by Johnathan Harvey MD
--- NOTE | 2023-09-23 23:11 | NOTE.SOAP ---
Soap Note Note for Day of Date of Exam: 09/23/23 Subjective Data Subjective Data: NG tube with bilious output . Has had some loose BMs with blood . Still some discomfort of abdomen Objective Data Temperature: 98.4 F Pulse Rate: 71 Respiratory Rate: 18 Blood Pressure: 174/85 O2 Sat by Pulse Oximetry: 97 Objective Data: Mild tenderness of the lower abdomen. Abdominal series shows no air fluid levels but they commented that the CT showed fluid filled bowel . Assessment Assessment: Distal small bowel obstruction, K=3.7 Plan Plan: Obtain C. difficile titer of stool , will repeat CT scan of abdomen. Will use contrast .
[2023-09-24 05:04] LABS: BASOPHILS % (AUTO) 0.3 % (0.2-1.0); EOSINOPHILS % (AUTO) 0.4 % (0.9-2.9); HEMATOCRIT 30.3 % (42.0-54.0); HEMOGLOBIN 9.9 g/dL (13.5-18.0); LYMPHOCYTES # (AUTO) 0.7 X10^3/uL (1.3-2.9); LYMPHOCYTES % (AUTO) 17.2 % (21.0-51.0); MEAN CORPUSCULAR HEMOGLOBIN 25.3 pg (27.0-34.0); MEAN CORPUSCULAR HGB CONC 32.7 g/dL (33.0-35.0); MEAN CORPUSCULAR VOLUME 77.3 fL (80.0-100.0); MEAN PLATELET VOLUME 8.4 fL (7.4-11.0); MONOCYTES # (AUTO) 0.4 x10^3/uL (0.3-0.8); MONOCYTES % (AUTO) 9.4 % (0.0-13.0); NEUTROPHILS % (AUTO) 72.7 % (42.0-75.0); PLATELET COUNT 124 X10^3/uL (150.0-450.0); RED BLOOD COUNT 3.92 X10^6/uL (4.7-6.0); WHITE BLOOD COUNT 4.2 X10^3/uL (3.6-10.0)
[2023-09-24 05:13] LABS: ALANINE AMINOTRANSFERASE 14 Units/L (12-78); ALBUMIN 2.5 g/dL (3.4-5.0); ALKALINE PHOSPHATASE 40 Units/L (46-116); ASPARTATE AMINO TRANSFERASE 15 Units/L (15-37); BLOOD UREA NITROGEN 9 mg/dL (7-18); CALCIUM 7.9 mg/dL (8.5-10.1); CARBON DIOXIDE 23.3 mmol/L (21-32); CHLORIDE 108 mmol/L (98-107); COR CA(FOR HYPOALB) 9.1 mg/dL (8.5-10.1); COR NA(FOR HYPERGLY) 142 mmol/L (136-145); CREATININE 0.83 mg/dL (0.70-1.30); GLUCOSE 115 mg/dL (65-99); POTASSIUM 3.4 mmol/L (3.5-5.1); SODIUM 142 mmol/L (136-145); TOTAL PROTEIN 5.6 g/dL (6.4-8.2); eGFR NON BLACK RACES > 60 (>60)
--- NOTE | 2023-09-24 06:33 | CT ---
EXAM: ABDCMEN/PELVIS WITH CON HISTORY: ABNORMAL BOWEL OF ILEUM, ABD PAIN, SBO ; HTN, DM SX: APPY, CSPINE, RIGHT WRIST, GERD SURG COMPARISON: 09/22/2023 TECHNIQUE: CT of the abdomen and pelvis obtained with IV contrast. Dose reduction techniques including Automated Exposure Control (AEC) and adjustment of mA and kV were utilized. FINDINGS: The visualized portions of the lower thorax demonstrate no acute process. Coronary calcifications. B ibasilar consolidation versus atelectasis. No acute osseous abnormality. The liver, gallbladder, spleen, pancreas, bilateral adrenal glands, and bilateral kidneys demonstrate no acute process. Gallbladder sludge. Enteric tube tip in the gastric lumen. Resolution of the previously described small-bowel distention no evidence of bowel obstruction. The appendix is surgically absent. Diverticulosis without evidenc e of diverticulitis. The bladder is unremarkable. Prominent prostate. No free air or fluid. Nonaneurysmal aorta. Scattere d vascular calcifications. IMPRESSION: Resolution of the previously described small-bowel distention. No evidence of bowel obstruction. Diverticulosis without evidence of diverticulitis. Consolidation versus atelectasis in the visualized lower lungs. THIS IS AN ELECTRONICALLY VERIFIED FINAL REPORT 09/24/2023 6:29 AM - Electronically signed by Gen Triplett MD
[2023-09-24] MEDS ORDERED: CONSULT PHARMACY - POTASSIUM & MAGNESIUM XX SCH (07:00)
[2023-09-24] MEDS: OMNIPAQUE 350 mg/mL 100 mL BTL 100 ML ONE (09:31)
[2023-09-24] MEDS: DEMEROL INJ ONE (09:31)
[2023-09-24] MEDS: NS 100 ML IV 100 ML ONE (09:31)
[2023-09-24] MEDS: K-DUR TAB 20 MEQ PO SCH (09:52)
--- NOTE | 2023-09-24 22:13 | CT ---
EXAM:CT abdomen and pelvis without contrastHISTORY:ABNORMAL BOWEL OF ILEUM, ABD PAIN, SBO ;COMPARISON:CT abdomen and pelvis with contrast performed earlier the same day.TECHNIQUE:Multiple axial images of the abdomen and pelvis were obtained from the lung bases to the pubic symphysis without the administration of IV contrast. Dose reduction techniques including Automated Exposure Control (AEC) and adjustment of mA and kV were utilized.FINDINGS:LOWER CHEST: Bibasilar atelectasis with trace pleural effusions.LIVER: No significant abnormality.BILIARY: Vicarious excretion of previously administered IV contrast. Unremarkable gallbladder. No biliary ductal dilatation.PANCREAS:No significant abnormality.SPLEEN: No significant abnormality.ADRENALS: No significant abnormality.KIDNEYS: No significant abnormality.STOMACH AND BOWEL: Noninflamed sigmoid diverticulosis. No small bowel obstruction or other acute findings.APPENDIX: Appendectomy.PERITONEUM: No free air, free fluid or fluid collection.VASCULATURE: Normal caliber of the aorta with moderate atherosclerosis.LYMPH NODES: No adenopathy.BLADDER: No significant abnormality.REPRODUCTIVE ORGANS: No significant abnormality.BONES: Unchanged.ADDITIONAL FINDINGS: None.IMPRESSION:No evidence of small-bowel obstruction or other acute findings explaining the patient's abdominal pain.THIS IS AN ELECTRONICALLY VERIFIED FINAL REPORT09/24/2023 10:10 PM - Electronically signed by Jorge Freeman MD
--- NOTE | 2023-09-24 23:38 | NOTE.SOAP ---
Soap Note Note for Day of Date of Exam: 09/24/23 Subjective Data Subjective Data: NG drainage this afternoon less bilious . CT with oral contrast showed no bowel obstruction. Objective Data Temperature: 98.3 F Pulse Rate: 77 Respiratory Rate: 20 Blood Pressure: 174/81 O2 Sat by Pulse Oximetry: 95 Objective Data: Abdomen not distended . Mild RLQ tenderness. Assessment Assessment: SBO resolved with NG decompression Plan Plan: Remove NG tube and begin clear liquid diet.
[2023-09-25 05:45] LABS: BASOPHILS % (AUTO) 0.2 % (0.2-1.0); EOSINOPHILS % (AUTO) 0.8 % (0.9-2.9); HEMATOCRIT 29.8 % (42.0-54.0); HEMOGLOBIN 9.8 g/dL (13.5-18.0); LYMPHOCYTES # (AUTO) 0.9 X10^3/uL (1.3-2.9); LYMPHOCYTES % (AUTO) 20.1 % (21.0-51.0); MEAN CORPUSCULAR HEMOGLOBIN 25.4 pg (27.0-34.0); MEAN CORPUSCULAR HGB CONC 32.9 g/dL (33.0-35.0); MEAN CORPUSCULAR VOLUME 77.2 fL (80.0-100.0); MONOCYTES # (AUTO) 0.4 x10^3/uL (0.3-0.8); MONOCYTES % (AUTO) 10.5 % (0.0-13.0); NEUTROPHILS # (AUTO) 2.9 x10^3/uL (2.2-4.8); NEUTROPHILS % (AUTO) 68.4 % (42.0-75.0); PLATELET COUNT 125 X10^3/uL (150.0-450.0); RED BLOOD COUNT 3.86 X10^6/uL (4.7-6.0); RED CELL DISTRIBUTION WIDTH 15.6 % (11.6-16.5); WHITE BLOOD COUNT 4.3 X10^3/uL (3.6-10.0)
[2023-09-25 05:57] LABS: ALANINE AMINOTRANSFERASE 11 Units/L (12-78); ALBUMIN 2.3 g/dL (3.4-5.0); ALKALINE PHOSPHATASE 41 Units/L (46-116); ASPARTATE AMINO TRANSFERASE 14 Units/L (15-37); BLOOD UREA NITROGEN 9 mg/dL (7-18); CARBON DIOXIDE 26.1 mmol/L (21-32); CHLORIDE 105 mmol/L (98-107); COR CA(FOR HYPOALB) 9.4 mg/dL (8.5-10.1); COR NA(FOR HYPERGLY) 142 mmol/L (136-145); CREATININE 0.87 mg/dL (0.70-1.30); GLUCOSE 156 mg/dL (65-99); MAGNESIUM 1.8 mg/dL (2.0-2.9); POTASSIUM 3.2 mmol/L (3.5-5.1); SODIUM 141 mmol/L (136-145); TOTAL PROTEIN 5.5 g/dL (6.4-8.2); eGFR NON BLACK RACES > 60 (>60)
[2023-09-25] MEDS: MAGNESIUM SULFATE 1 GRAM/100 mL PREMIX 1 G/100 ML BAG IV SCH (09:31)
[2023-09-25] MEDS: INFeD or DEXFERRUM 25 MG in NS 100 ML IV 100 ML IV ONE (11:32)
[2023-09-25] MEDS: NS IV ONE (11:44)
[2023-09-25] MEDS: POTASSIUM CHLORIDE IV ONE (11:44)
[2023-09-25] MEDS: K-DUR TAB 20 MEQ PO SCH (11:53)
[2023-09-25] MEDS: CONSULT PHARMACY - POTASSIUM & MAGNESIUM XX SCH (11:57)
[2023-09-25] MEDS: INFeD or DEXFERRUM 975 MG in NS 500 ML IV 500 ML IV ONE (13:37)
[2023-09-25 16:23] VITALS: BP 171/79; PULSE 82; RESP 20; TEMP 98.2; O2SAT 95
== END 2023-09-25 17:45 | disposition home or self-care (01) | DRG 389 ==
LOC: ER 09:24 → MED/SURG 09:24 → OBSVTOIN 12:03 → MED/SURG 13:35
PROVIDERS: ADMIT Obstetrics & Gynecology Obstetrics; ATTEND Obstetrics & Gynecology Obstetrics

== ENCOUNTER 2024-03-05 15:00 | Observation (INO) ==
[2024-03-05 15:50] LABS: BASOPHILS % (AUTO) 0.5 % (0.2-1.0); EOSINOPHILS % (AUTO) 0.6 % (0.9-2.9); HEMATOCRIT 38.8 % (42.0-54.0); HEMOGLOBIN 13.7 g/dL (13.5-18.0); LYMPHOCYTES # (AUTO) 0.7 X10^3/uL (1.3-2.9); LYMPHOCYTES % (AUTO) 16.5 % (21.0-51.0); MEAN CORPUSCULAR HEMOGLOBIN 31.3 pg (27.0-34.0); MEAN CORPUSCULAR HGB CONC 35.2 g/dL (33.0-35.0); MONOCYTES # (AUTO) 0.2 x10^3/uL (0.3-0.8); MONOCYTES % (AUTO) 4.7 % (0.0-13.0); NEUTROPHILS # (AUTO) 3.3 x10^3/uL (2.2-4.8); NEUTROPHILS % (AUTO) 77.7 % (42.0-75.0); PLATELET COUNT 95 X10^3/uL (150.0-450.0); RED BLOOD COUNT 4.37 X10^6/uL (4.7-6.0); RED CELL DISTRIBUTION WIDTH 13.8 % (11.6-16.5); WHITE BLOOD COUNT 4.3 X10^3/uL (3.6-10.0)
[2024-03-05 16:00] LABS: ALANINE AMINOTRANSFERASE 27 Units/L (12-78); ALBUMIN 3.1 g/dL (3.4-5.0); ALKALINE PHOSPHATASE 123 Units/L (46-116); ASPARTATE AMINO TRANSFERASE 17 Units/L (15-37); BLOOD UREA NITROGEN 20 mg/dL (7-18); CALCIUM 8.7 mg/dL (8.5-10.1); CARBON DIOXIDE 25.4 mmol/L (21-32); CHLORIDE 105 mmol/L (98-107); COR CA(FOR HYPOALB) 9.4 mg/dL (8.5-10.1); COR NA(FOR HYPERGLY) 143 mmol/L (136-145); CREATININE 1.24 mg/dL (0.70-1.30); GLUCOSE 353 mg/dL (65-99); POTASSIUM 4.8 mmol/L (3.5-5.1); SODIUM 137 mmol/L (136-145); eGFR NON BLACK RACES > 60 (>60)
--- NOTE | 2024-03-05 16:17 | DR.GENAD ---
HPI Time Seen Time Seen by Provider: 03/05/24 16:16 PCP Primary Care Physician: Dr. Rothman/Dr. Little at [place] Complaint/Symptoms Chief Complaint Doctors Comments: Patient states that he has had some bleeding from his rectum for couple days he does have a history of having hemorrhoids he stated he also has a little bit of a tarry stool this been going on for like 3 to 4 days. [facility] he has not seen them in about 2 months where he had upper endoscopy he said that came out okay there was no abnormality seen there he is scheduled to have a repeat colonoscopy in the near future. Chief Complaint:: Pt c/o 3 days of bloody stools noted to be both bright red blood and dark tarry stools. Pt states that he does have a history of hemorrhoids and does occassionally bleed but never this much. Pt also c/o 2 days of increased generalized weakness and fatigue. Denies any abdominal pain. COVID-19 Coronavirus risk:travel/contact w/high risk person: No Has patient experienced Coronavirus symptoms: No Source History Provided: Patient Mode of Arrival Mode of Arrival: Ambulatory Timing Onset of Chief Complaint: 03/03/24 PMH PMH Past Medical History: Yes Past Medical History: Anemia, Diabetes, Dyslipidemia, GERD, Hypertension, Hypothyroidism and Sleep Apnea Past Medical History Comment: TIA Past Surgical History: Yes Surgical History: Appendectomy, Ortho Surgery and Tonsillectomy Past Surgical History Comment: Nissian Fundoplication, Cervical Fusion, Right knee surgery, right wrist surgery Family History History of Family Medical Conditions: Yes Family Medical History: Diabetes Mellitus, Cancer, [place], Coronary Artery Disease and Hypertension Family Medical History Comment: aneurysm Social History Does patient currently use any type of tobacco product: No Have you used tobacco products in the last 12 months: No Type of Tobacco Use: None Does any household member use tobacco: No Alcohol Use: None Do you use any recreational Drugs:: No Lives With: Family Lives Where: Home Travel Risk Coronavirus risk:travel/contact w/high risk person: No Has patient experienced Coronavirus symptoms: No Infectious screening In the last 2 months have you had wt loss of >10#?: NO Have you had fever, night sweats or hemotysis?: No Have you traveled outside the country in the last 6 months?: No Isolation: Standard ROS Review of Systems Constitutional: Other (Rectal bleeding) Eyes: No Symptoms Reported ENTM: No Symptoms Reported Respiratoy: No Symptoms Reported Cardiovascular: No Symptoms Reported Gastrointestinal/Abdominal: Other (GI bleed) Genitourinary: No Symptoms Reported Neurological: No Symptoms Reported Musculoskeletal: No Symptoms Reported Integumentary: No Symptoms Reported Hematologic/Lymphatic: Other (Reports anal bleeding with history of hemorrhoids) Endocrine: No Symptoms Reported Psychiatric: No Symptoms Reported PE Vital Signs Vitals: Vital Signs Temperature 98.7 F Pulse Rate [Left Brachial] 57 Pulse Rate 59 Respiratory Rate 18 Respiratory Rate 20 Blood Pressure [Left Arm] 174/81 Blood Pressure 141/64 O2 Sat by Pulse Oximetry 97 O2 Sat by Pulse Oximetry 97 General Limitations: No Limitations General Appearance: In No Apparent Distress Head Head Exam: Normal Inspection, Atraumatic and Normocephalic Eyes Eye exam: Normal Appearance, PERRL and EOMI ENT ENT Exam: Normal Exam, Normal Oropharynx and Normal External Ear Exam External Ear Exam: Normal External Inspection TM/Canal Exam: Bilateral: Normal Nose Exam: Normal Nose Exam Mouth Exam: Normal Inspection Throat Exam: Normal Inspection Neck Neck Exam: Normal Inspection Chest Chest Inspection: Normal Inspection Respiratory Respiratory Exam: Normal Lung Sounds Bilat Respiratory Exam: Bilateral: Clear to Auscultation Cardiovascular Cardiovascular Exam: Regular Rate and Normal Rhythm Abdominal Exam Abdominal Exam: Normal Inspection, Normal Bowel Sounds and Soft Abdominal Tenderness: LUQ Extremities Extremities Exam: Normal Inspection and Full ROM Back Back Exam: Normal Inspection and Full ROM Neurologic Neurological Exam: Alert and Oriented X3 Psychiatric Psychiatric Exam: Normal Affect and Normal Mood Skin Skin Exam: Warm, Dry and Intact Other Exam Other Exam: Patient had rectal exam evaluation there was a small external hemorrhoid. Nonthrombosed MDM Differential Diagnosis Differential Diagnosis: Lower GI bleed, internal hemorrhoid. Anemia. COURSE Treatment Treatment: This patient remained relatively stable during ER evaluation. We did do lab work on this and his CBC and CMP were relatively normal besides he had an elevated glucose of 300+. We did do a urine he did have +4 glucose in the urine. The patient did have a CT scan of his abdomen pelvis that showed diverti culosis without diverticulitis. He had mild prominence of small intestine which could be an ileus. This patient had a heme positive occult stool. The patient recently had a upper endoscopy said it was okay about 2 months ago. He was scheduled to probably get a colonoscopy sometime soon he goes to the [place]. He was told to make sure he does not take any aspirin oriented nonsteroidals. He needs to follow-up with his primary care provider in 2 to 3 days we did give him to the diet to have when he does have a small ileus such as increase his fiber increase his fluid intake the water and follow-up primary care provider in 2 days to be referred back to GI to possibly do a colonoscopy. I did see the stool that the patient had here in the ER and he had some bobbi blood there was lower stool so I was discussed with the patient which way they want to go for further evaluation they said that they probably would rather stay here so we called Dr. Canela and 2017 and he said to admit the patient to him for lower GIB bleed and with the ileus and he will probably do a colonoscopy tomorrow. [facility] Labs Reviewed Laboratory Results Reviewed?: Yes 03/05/24 15:41 03/05/24 15:41 Laboratory: WBC 4.3 X10^3/uL (3.6-10.0) 03/05/24 15:41 RBC 4.37 X10^6/uL (4.7-6.0) L 03/05/24 15:41 Hgb 13.7 g/dL (13.5-18.0) 03/05/24 15:41 Hct 38.8 % (42.0-54.0) L 03/05/24 15:41 MCV 89.0 fL (80.0-100.0) 03/05/24 15:41 MCH 31.3 pg (27.0-34.0) 03/05/24 15:41 MCHC 35.2 g/dL (33.0-35.0) H 03/05/24 15:41 RDW 13.8 % (11.6-16.5) 03/05/24 15:41 Plt Count 95 X10^3/uL (150.0-450.0) L 03/05/24 15:41 MPV 9.0 fL (7.4-11.0) 03/05/24 15:41 Neut % (Auto) 77.7 % (42.0-75.0) H 03/05/24 15:41 Lymph % (Auto) 16.5 % (21.0-51.0) L 03/05/24 15:41 [place] % (Auto) 4.7 % (0.0-13.0) 03/05/24 15:41 Eos % (Auto) 0.6 % (0.9-2.9) L 03/05/24 15:41 Baso % (Auto) 0.5 % (0.2-1.0) 03/05/24 15:41 Neut # (Auto) 3.3 x10^3/uL (2.2-4.8) 03/05/24 15:41 Lymph # (Auto) 0.7 X10^3/uL (1.3-2.9) L 03/05/24 15:41 [place] # (Auto) 0.2 x10^3/uL (0.3-0.8) L 03/05/24 15:41 Eos # (Auto) 0.0 x10^3/uL (0.0-0.2) 03/05/24 15:41 Baso # (Auto) 0.0 X10^3/uL (0.0-0.1) 03/05/24 15:41 Absolute Nucleated RBC 0.1 /100WBC 03/05/24 15:41 PT 14.9 SECONDS (11.8-14.3) 03/05/24 15:41 INR Target Range - 03/05/24 15:41 INR 1.20 (0.8-1.3) 03/05/24 15:41 APTT 27.6 SECONDS (22.9-36.5) 03/05/24 15:41 PTT Comment - 03/05/24 15:41 Sodium 137 mmol/L (136-145) 03/05/24 15:41 Corrected Sodium 143 mmol/L (136-145) 03/05/24 15:41 Potassium 4.8 mmol/L (3.5-5.1) 03/05/24 15:41 Chloride 105 mmol/L (98-107) 03/05/24 15:41 Carbon Dioxide 25.4 mmol/L (21-32) 03/05/24 15:41 BUN 20 mg/dL (7-18) H 03/05/24 15:41 Creatinine 1.24 mg/dL (0.70-1.30) 03/05/24 15:41 Est GFR (MDRD) Af Amer > 60 (>60) 03/05/24 15:41 Est GFR (MDRD) Non-Af > 60 (>60) 03/05/24 15:41 Glucose 353 mg/dL (65-99) H 03/05/24 15:41 Calcium 8.7 mg/dL (8.5-10.1) 03/05/24 15:41 Corrected Calcium 9.4 mg/dL (8.5-10.1) 03/05/24 15:41 Total Bilirubin 0.80 mg/dL (0.2-1.0) 03/05/24 15:41 AST 17 Units/L (15-37) 03/05/24 15:41 ALT 27 Units/L (12-78) 03/05/24 15:41 Alkaline Phosphatase 123 Units/L (46-116) H 03/05/24 15:41 Total Protein 6.0 g/dL (6.4-8.2) L 03/05/24 15:41 Albumin 3.1 g/dL (3.4-5.0) L 03/05/24 15:41 Globulin 2.9 g/dL (2.5-4.5) 03/05/24 15:41 Albumin/Globulin Ratio 1.1 Ratio (1.1-2.1) 03/05/24 15:41 Specimen Type Clean catch urine 03/05/24 16:32 Urine Color Pale yellow (YELLOW) 03/05/24 16:32 Urine Appearance Clear (CLEAR) 03/05/24 16:32 Urine pH 6.0 (5.0 - 8.0) 03/05/24 16:32 Ur Specific [place] 1.015 (1.000-1.030) 03/05/24 16:32 Urine Protein Negative (NEGATIVE) 03/05/24 16:32 Urine Glucose (UA) 4+ (NEGATIVE) 03/05/24 16:32 Urine Ketones Negative (NEGATIVE) 03/05/24 16: Urine Blood Negative (NEGATIVE) 03/05/24 16:32 Urine Nitrite Negative (NEGATIVE) 03/05/24 16:32 Urine Bilirubin Negative (NEGATIVE) 03/05/24 16:32 Urine Urobilinogen Normal (NORMAL) 03/05/24 16:32 Ur Leukocyte Esterase Negative (NEGATIVE) 03/05/24 16:32 Stl Occult Blood (IFOB) Positive (NEGATIVE) A 03/05/24 17:58 Opioid Opioid Risk Tool Age (Markos box if 16-45): No History of Preadolescent Sexual Abuse: No Total: 0 Total Score Risk Category: Low Risk Copyright: Joni KING predicting aberrant behaviors Discharge Plan Diagnosis Discharge Problem: Ileus, Gastrointestinal bleeding, lower, Hyperglycemia Discharge Plan Patient Disposition: 09 ADMITTED INPATIENT Condition: Stable Prescriptions: No Action ascorbic acid (vitamin C) 500 mg Tablet 500 mg PO QDAY atorvastatin 10 MG tablet 40 mg PO DAILY desonide 0.05 % Cream 1 applic TOPICAL BID bisoprolol fumarate 5 mg Tablet 5 mg PO QDAY ferrous sulfate 325 mg (65 mg iron) Tablet 325 mg PO QDAY clotrimazole 1 % Cream 1 applic TOPICAL BID diclofenac sodium 1 % Gel 2 g TOPICAL QID Rx Instructions: apply to single elbow, wrist or hand; for hand includes palm/fingers/back of hand metformin 500 mg Tablet 500 mg PO BID ketoconazole 2 % Shampoo 1 applic TOPICAL 2XW pioglitazone 45 mg Tablet 45 mg PO QDAY levothyroxine 75 mcg Tablet 75 mcg PO QDAY niacin 500 mg Tablet 500 mg PO BID nitroglycerin 0.4 mg Tablet, Sublingual 0.4 mg SUBLINGUAL Q5M PRN Rx Instructions: do not exceed 3 doses per episode ketoconazole 2 % Cream 1 applic TOPICAL BID insulin glargine-yfgn 100 unit/mL Solution 26 unit SUBCUT QDAY psyllium Packet 1 packet PO QDAY Rx Instructions: mix into at least 8 oz of water or juice before administering semaglutide (weight loss) 1.7 mg/0.75 mL Pen Injector 1 mg SUBCUT QWEEK Health Concerns: Post Hospitalization: new medications and changes needed to prevent readmission or further decline. Pt educated and given instructions on all concerns. Plan of Treatment: Continue with present treatment and follow up plan. Pt is to keep follow up appointment as instructed and take medications as ordered. Orders to Discharge Patient Discharge Orders: Transfer (Routine); Ordered 03/05/24 Ordered By: Franko Monet Follow ups/Referrals Follow ups/Referrals: JU ROTHMAN [Primary Care Provider] - 3 days Instructions Stand Alone Forms: Find Help Web Site, Post Hospital Follow Up Care
[2024-03-05 16:39] LABS: BILIRUBIN,URINE NEGATIVE (NEGATIVE); BLOOD/HEMOGLOBIN,URINE NEGATIVE (NEGATIVE); GLUCOSE, URINE 4+ (NEGATIVE); KETONES,URINE NEGATIVE (NEGATIVE); LEUKOCYTE ESTERASE ,URINE NEGATIVE (NEGATIVE); NITRITES,URINE NEGATIVE (NEGATIVE); PROTEIN,URINE NEGATIVE (NEGATIVE); UROBILINOGEN,URINE NORMAL (NORMAL)
[2024-03-05 16:41] LABS: APPEARANCE,URINE CLEAR (CLEAR); COLOR,URINE PALE YELLOW (YELLOW)
--- NOTE | 2024-03-05 17:50 | CT ---
EXAM:ABDOMEN/PELVIS W/O CONHISTORY:RECTAL BLEEDING;COMPARISON:None.TECHNIQUE:Nonen hanced spiral CT imaging was performed through the abdomen and pelvis and axial, coronal, and sagittal CT images were generated.FINDINGS:The lung bases are clear without effusion. Heart size is normal. The liver, gallbladder, pancreas, spleen, adrenal glands, and both kidneys are normal. There is no renal mass, stone, or hydronephrosis. Urinary bladder is normal. The prostate measures 5.3 cm in diameter. There is postsurgical change at the GE junction. Stomach is otherwise unremarkable. There are air-fluid levels in the small bowel with diameters measuring up to 3.4 cm in diameter. The appendix has been removed. There is diverticulosis of the descending and sigmoid colon but no diverticulitis. There is moderate systemic atherosclerosis. There is degeneration of the spine, SI joints, and hips.IMPRESSION:1. Diverticulosis coli without diverticulitis.2. Mild prominence of small bowel which could be ileus.THIS IS AN ELECTRONICALLY VERIFIED FINAL [id number]/05/2024 5:46 PM - Electronically signed by Rehan Ferreira MD
[2024-03-05] MEDS: PROTONIX INJ 40 MG VIAL IVP ONE (20:33)
[2024-03-05] MEDS: NS 1,000 ML IV 1,000 ML IV SCH (20:34)
[2024-03-05 22:09] VITALS: BMI 29.5
[2024-03-06 07:02] LABS: BASOPHILS % (AUTO) 0.2 % (0.2-1.0); EOSINOPHILS % (AUTO) 0.8 % (0.9-2.9); HEMATOCRIT 38.4 % (42.0-54.0); HEMOGLOBIN 13.7 g/dL (13.5-18.0); LYMPHOCYTES # (AUTO) 1.1 X10^3/uL (1.3-2.9); LYMPHOCYTES % (AUTO) 23.1 % (21.0-51.0); MEAN CORPUSCULAR HEMOGLOBIN 31.2 pg (27.0-34.0); MEAN CORPUSCULAR HGB CONC 35.5 g/dL (33.0-35.0); MEAN CORPUSCULAR VOLUME 87.9 fL (80.0-100.0); MEAN PLATELET VOLUME 9.4 fL (7.4-11.0); MONOCYTES # (AUTO) 0.3 x10^3/uL (0.3-0.8); MONOCYTES % (AUTO) 6.3 % (0.0-13.0); NEUTROPHILS # (AUTO) 3.3 x10^3/uL (2.2-4.8); NEUTROPHILS % (AUTO) 69.6 % (42.0-75.0); PLATELET COUNT 96 X10^3/uL (150.0-450.0); RED BLOOD COUNT 4.37 X10^6/uL (4.7-6.0); WHITE BLOOD COUNT 4.8 X10^3/uL (3.6-10.0)
[2024-03-06 07:18] LABS: ALANINE AMINOTRANSFERASE 24 Units/L (12-78); ALBUMIN 3.1 g/dL (3.4-5.0); ALKALINE PHOSPHATASE 72 Units/L (46-116); ASPARTATE AMINO TRANSFERASE 20 Units/L (15-37); BLOOD UREA NITROGEN 12 mg/dL (7-18); CALCIUM 8.6 mg/dL (8.5-10.1); CARBON DIOXIDE 27.9 mmol/L (21-32); CHLORIDE 109 mmol/L (98-107); COR CA(FOR HYPOALB) 9.3 mg/dL (8.5-10.1); COR NA(FOR HYPERGLY) 144 mmol/L (136-145); GLUCOSE 145 mg/dL (65-99); POTASSIUM 3.9 mmol/L (3.5-5.1); SODIUM 143 mmol/L (136-145); TOTAL PROTEIN 5.9 g/dL (6.4-8.2); eGFR NON BLACK RACES > 60 (>60)
[2024-03-06] MEDS: PROTONIX INJ 40 MG VIAL IVP SCH (09:10)
[2024-03-06] MEDS: NovoLIN R (or HumuLIN R) SUBCUT PRN (11:51)
[2024-03-06] MEDS: FIBERCON or FIBER-LAX PO SCH (16:31)
--- NOTE | 2024-03-06 17:34 | DR.H&P ---
H&P History & Physical for Day of: H&P Date: 03/05/24 Chief Complaint Chief Complaint: bleeding from rectum History of Present Illness History of Present Illness: 68 year old man who had been admitted by me in the past for small bowel obstruction which resolved without surgery. Seen in the office known to have had negative:oscopy in the last several months although it is planned to be repeated due to the fact that he had incomplete bowel prep. At that time was noted to have significant prolapsing internal hemorrhoids and was tentatively scheduled by me for hemorrhoidectomy but it is never been accomplished. Presented to the emergency room with stool mixed with blood. No abdominal pain. Hgb leighton at 13.[address] of abdomen showed only sigoid diveticulosis . Past Medical History Past Medical History: Anemia, Diabetes, Dyslipidemia, GERD, Hypertension, Hypothyroidism and Sleep Apnea Additional Medical History: hemnorrhoids Past Surgical History Surgical History: Appendectomy and Ortho Surgery Family History Family Medical History: Diabetes Mellitus, Cancer and [place] Social History Does patient currently use any type of tobacco product: No Have you used tobacco products in the last 12 months: No Type of Tobacco Use: None Does any household member use tobacco: No Alcohol Use: None Drug Use: None Medications Home Medications: Home Medications Medication Instructions Recorded Confirmed Type ascorbic acid (vitamin C) 500 mg 500 mg PO QDAY 09/22/23 10/06/23 History tablet atorvastatin 10 mg tablet 40 mg PO DAILY 09/22/23 10/06/23 History bisoprolol fumarate 5 mg tablet 5 mg PO QDAY 09/22/23 10/06/23 History clotrimazole 1 % topical cream 1 applic topical BID 09/22/23 10/06/23 History desonide 0.05 % topical cream 1 applic topical BID 09/22/23 10/06/23 History diclofenac sodium 1 % topical gel 2 g topical QID 09/22/23 10/06/23 History ferrous sulfate 325 mg (65 mg 325 mg PO QDAY 09/22/23 10/06/23 History iron) tablet insulin glargine-yfgn 100 unit/mL 26 unit subcut QDAY 09/22/23 10/06/23 History subcutaneous solution ketoconazole 2 % shampoo 1 applic topical 2XW 09/22/23 10/06/23 History ketoconazole 2 % topical cream 1 applic topical BID 09/22/23 10/06/23 History levothyroxine 75 mcg tablet 75 mcg PO QDAY 09/22/23 10/06/23 History metformin 500 mg tablet 500 mg PO BID 09/22/23 10/06/23 History niacin 500 mg tablet 500 mg PO BID 09/22/23 10/06/23 History nitroglycerin 0.4 mg sublingual 0.4 mg sublingual Q5M PRN 09/22/23 10/06/23 History tablet pioglitazone 45 mg tablet 45 mg PO QDAY 09/22/23 10/06/23 History psyllium 1 packet PO QDAY 09/22/23 10/06/23 History semaglutide (weight loss) 1.7 1 mg subcut QWEEK 09/22/23 10/06/23 History mg/0.75 mL subcutaneous pen injector Allergies Allergies Allergy/AdvReac Type Severity Reaction Status Date / Time codeine Allergy Verified 03/05/24 15:26 empagliflozin Allergy Verified 03/05/24 15:26 gluten Allergy Verified 03/05/24 15:26 ibuprofen Allergy Verified 03/05/24 15:26 morphine Allergy Verified 03/05/24 15:26 wheat Allergy Verified 03/05/24 15:26 BEE STINGS Allergy Uncoded 10/09/17 19:30 Labs 03/06/24 06:08 03/06/24 06:08 Labs: Laboratory WBC 4.8 X10^3/uL (3.6-10.0) 03/06/24 06:08 RBC 4.37 X10^6/uL (4.7-6.0) L 03/06/24 06:08 Hgb 13.7 g/dL (13.5-18.0) 03/06/24 06:08 Hct 38.4 % (42.0-54.0) L 03/06/24 06:08 MCV 87.9 fL (80.0-100.0) 03/06/24 06:08 MCH 31.2 pg (27.0-34.0) 03/06/24 06:08 MCHC 35.5 g/dL (33.0-35.0) H 03/06/24 06:08 RDW 14.0 % (11.6-16.5) 03/06/24 06:08 Plt Count 96 X10^3/uL (150.0-450.0) L 03/06/24 06:08 MPV 9.4 fL (7.4-11.0) 03/06/24 06:08 Neut % (Auto) 69.6 % (42.0-75.0) 03/06/24 06:08 Lymph % (Auto) 23.1 % (21.0-51.0) 03/06/24 06:08 [place] % (Auto) 6.3 % (0.0-13.0) 03/06/24 06:08 Eos % (Auto) 0.8 % (0.9-2.9) L 03/06/24 06:08 Baso % (Auto) 0.2 % (0.2-1.0) 03/06/24 06:08 Neut # (Auto) 3.3 x10^3/uL (2.2-4.8) 03/06/24 06:08 Lymph # (Auto) 1.1 X10^3/uL (1.3-2.9) L 03/06/24 06:08 [place] # (Auto) 0.3 x10^3/uL (0.3-0.8) 03/06/24 06:08 Eos # (Auto) 0.0 x10^3/uL (0.0-0.2) 03/06/24 06:08 Baso # (Auto) 0.0 X10^3/uL (0.0-0.1) 03/06/24 06:08 Absolute Nucleated RBC 0.1 /100WBC 03/06/24 06:08 PT 14.9 SECONDS (11.8-14.3) 03/05/24 15:41 INR Target Range - 03/05/24 15:41 INR 1.20 (0.8-1.3) 03/05/24 15:41 APTT 27.6 SECONDS (22.9-36.5) 03/05/24 15:41 PTT Comment - 03/05/24 15:41 Sodium 143 mmol/L (136-145) 03/06/24 06:08 Corrected Sodium 144 mmol/L (136-145) 03/06/24 06:08 Potassium 3.9 mmol/L (3.5-5.1) 03/06/24 06:08 Chloride 109 mmol/L (98-107) H 03/06/24 06:08 Carbon Dioxide 27.9 mmol/L (21-32) 03/06/24 06:08 BUN 12 mg/dL (7-18) 03/06/24 06:08 Creatinine 1.00 mg/dL (0.70-1.30) 03/06/24 06:08 Est GFR (MDRD) Af Amer > 60 (>60) 03/06/24 06:08 Est GFR (MDRD) Non-Af > 60 (>60) 03/06/24 06:08 Glucose 145 mg/dL (65-99) H 03/06/24 06:08 POC Glucose (mg/dL) 149 mg/dL (65-99) H 03/06/24 16:05 Calcium 8.6 mg/dL (8.5-10.1) 03/06/24 06:08 Corrected Calcium 9.3 mg/dL (8.5-10.1) 03/06/24 06:08 Total Bilirubin 0.90 mg/dL (0.2-1.0) 03/06/24 06:08 AST 20 Units/L (15-37) 03/06/24 06:08 ALT 24 Units/L (12-78) 03/06/24 06:08 Alkaline Phosphatase 72 Units/L (46-116) 03/06/24 06:08 Total Protein 5.9 g/dL (6.4-8.2) L 03/06/24 06:08 Albumin 3.1 g/dL (3.4-5.0) L 03/06/24 06:08 Globulin 2.8 g/dL (2.5-4.5) 03/06/24 06:08 Albumin/Globulin Ratio 1.1 Ratio (1.1-2.1) 03/06/24 06:08 Specimen Type Clean catch urine 03/05/24 16:32 Urine Color Pale yellow (YELLOW) 03/05/24 16:32 Urine Appearance Clear (CLEAR) 03/05/24 16:32 Urine pH 6.0 (5.0 - 8.0) 03/05/24 16:32 Ur Specific [place] 1.015 (1.000-1.030) 03/05/24 16:32 Urine Protein Negative (NEGATIVE) 03/05/24 16:32 Urine Glucose (UA) 4+ (NEGATIVE) 03/05/24 16:32 Urine Ketones Negative (NEGATIVE) 03/05/24 16:32 Urine Blood Negative (NEGATIVE) 03/05/24 16:32 Urine Nitrite Negative (NEGATIVE) 03/05/24 16:32 Urine Bilirubin Negative (NEGATIVE) 03/05/24 16:32 Urine Urobilinogen Normal (NORMAL) 03/05/24 16:32 Ur Leukocyte Esterase Negative (NEGATIVE) 03/05/24 16:32 Stl Occult Blood (IFOB) Positive (NEGATIVE) A 03/05/24 17:58 Review of Systems Constitutional: See HPI Eyes: No Symptoms Reported ENT: No Symptoms Reported Respiratory: No Symptoms Reported Cardiovascular: No Symptoms Reported Gastrointestinal: See HPI Genitourinary: No Symptoms Reported Musculoskeletal: No Symptoms Reported Skin: No Symptoms Reported Neurological: No Symptoms Reported Physical Exam Vital Signs: Vital Signs Temperature 98.6 F Temperature 97.8 F Pulse Rate [Left Brachial] 60 Pulse Rate [Left Brachial] 62 Respiratory Rate 17 Respiratory Rate 19 Blood Pressure [Left Arm] 147/70 Blood Pressure [Left Arm] 176/76 O2 Sat by Pulse Oximetry 95 O2 Sat by Pulse Oximetry 96 Oriented: Normal, Time, Person and Place Eyes: Normal Ear: Normal Nose: Normal Throat: Normal Respiratory: Clear Throughout Cardiovascular: Normal : Normal Auscultation: Bowel Sounds: Normal Palpation: Normal Tenderness: Normal and Other (rectal meam , heme positive, hemorrhoids present ) Skin: Normal Musculoskeletal: Normal Mood Description: Calm Affect: Normal Speech Pattern: Clear and Appropriate Assessment/Plan (1) Ileus: Status: Acute (2) Internal bleeding hemorrhoids: Status: Acute Plan: if hemoglobin remains stable will discharge home , scheduled for colonoscopy on the furure , will schedule for circular stapled hemorroidectomy in the future Review H&P Reviewed: Yes Patient was examined?: Yes
--- NOTE | 2024-03-06 17:49 | NOTE.SOAP ---
Soap Note Note for Day of Date of Exam: 03/06/24 Subjective Data Subjective Data: doing well, still with stool mixed with blood , Hgb stabel at 13,7 Objective Data Temperature: 98.6 F Pulse Rate: 60 Respiratory Rate: 17 Blood Pressure: 147/70 O2 Sat by Pulse Oximetry: 95 Objective Data: benign abdomen , Hgb stable Assessment Assessment: GI bleed , probably internal hemorrhoids Plan Plan: if Hgb stable latoya d/c home tomorrow
[2024-03-06] MEDS: SNACK - Diabetic Appropriate PO SCH (21:35)
[2024-03-07 06:13] LABS: BASOPHILS % (AUTO) 0.5 % (0.2-1.0); EOSINOPHILS # (AUTO) 0.1 x10^3/uL (0.0-0.2); HEMATOCRIT 41.4 % (42.0-54.0); HEMOGLOBIN 14.7 g/dL (13.5-18.0); LYMPHOCYTES # (AUTO) 1.3 X10^3/uL (1.3-2.9); LYMPHOCYTES % (AUTO) 23.8 % (21.0-51.0); MEAN CORPUSCULAR HEMOGLOBIN 31.3 pg (27.0-34.0); MEAN CORPUSCULAR HGB CONC 35.5 g/dL (33.0-35.0); MEAN CORPUSCULAR VOLUME 88.1 fL (80.0-100.0); MEAN PLATELET VOLUME 9.3 fL (7.4-11.0); MONOCYTES # (AUTO) 0.4 x10^3/uL (0.3-0.8); MONOCYTES % (AUTO) 6.6 % (0.0-13.0); NEUTROPHILS # (AUTO) 3.8 x10^3/uL (2.2-4.8); NEUTROPHILS % (AUTO) 68.1 % (42.0-75.0); PLATELET COUNT 96 X10^3/uL (150.0-450.0); RED CELL DISTRIBUTION WIDTH 13.9 % (11.6-16.5); WHITE BLOOD COUNT 5.6 X10^3/uL (3.6-10.0)
[2024-03-07 06:28] LABS: ALANINE AMINOTRANSFERASE 24 Units/L (12-78); ALBUMIN 3.4 g/dL (3.4-5.0); ALKALINE PHOSPHATASE 73 Units/L (46-116); ASPARTATE AMINO TRANSFERASE 19 Units/L (15-37); BLOOD UREA NITROGEN 11 mg/dL (7-18); CALCIUM 8.8 mg/dL (8.5-10.1); CARBON DIOXIDE 29.6 mmol/L (21-32); CHLORIDE 108 mmol/L (98-107); COR NA(FOR HYPERGLY) 144 mmol/L (136-145); CREATININE 1.04 mg/dL (0.70-1.30); GLUCOSE 135 mg/dL (65-99); POTASSIUM 3.7 mmol/L (3.5-5.1); SODIUM 143 mmol/L (136-145); TOTAL PROTEIN 6.4 g/dL (6.4-8.2); eGFR NON BLACK RACES > 60 (>60)
[2024-03-07] MEDS ORDERED: CONSULT PHARMACY - POTASSIUM & MAGNESIUM XX SCH (08:06)
[2024-03-07 08:47] VITALS: O2SAT 95
--- NOTE | 2024-03-07 08:57 | PCM.PROG ---
Progress Note Progress Note for Day of Date of Exam: 03/06/24 Subjective Subjective: Pt is a 68 year old man Admitted for GI bleed. General surgeryDr. Canela has been consulted and is known to him. He has a history of significant prolapsing internal hemorrhoids and was going to be scheduled for hemorrhoidectomy. He is presenting with stool mixed with blood. No abdominal pain. His hemoglobin has been stable. His CT of the abdomen and pelvis did show sigmoid diverticulosis. At this point time we will advance diet to full liquid diet and restart home medications. Hemoglobin will be trended. Continue to closely monitor and follow-up recommendations. Past Medical Family Social History Allergies: Allergies codeine Allergy (Verified 03/05/24 15:26) empagliflozin Allergy (Verified 03/05/24 15:26) gluten Allergy (Verified 03/05/24 15:) ibuprofen Allergy (Verified 03/05/24 15:26) morphine Allergy (Verified 03/05/24 15:26) wheat Allergy (Verified 03/05/24 15:26) BEE STINGS Allergy (Uncoded 10/09/17 19:30) Review of Systems ROS changes noted: see HPI Vital Signs and I&O's Vital Signs: Vital Signs Temperature 98.3 F Temperature 98.7 F Pulse Rate [Right Brachial] 55 Pulse Rate [Left Brachial] 71 Respiratory Rate 21 Respiratory Rate 21 Blood Pressure [Right Arm] 176/79 Blood Pressure [Left Arm] 150/71 O2 Sat by Pulse Oximetry 95 O2 Sat by Pulse Oximetry 96 Intake and Output: Intake & Output 03/04/24 03/05/24 03/06/24 03/07/24 23:59 23:59 23:59 23:59 Intake Total 166 / 166 3633 / 3633 931 / 931 Output Total 1121 / 1121 2 / 2 Balance 166 / 166 2512 / 2512 929 / 929 Physical Exam Oriented: Normal, Time, Person and Place Eyes: Normal Ear: Normal Nose: Normal Throat: Normal Cardiovascular: Normal : Normal Auscultation: Bowel Sounds: Normal Tenderness: Normal and Other (rectal meam , heme positive, hemorrhoids present ) Skin: Normal Musculoskeletal: Normal Mood Description: Calm Affect: Normal Speech Pattern: Clear Laboratory and Diagnostics 03/07/24 05:15 03/07/24 05:15 Labs: Laboratory WBC 5.6 X10^3/uL (3.6-10.0) 03/07/24 05:15 RBC 4.70 X10^6/uL (4.7-6.0) 03/07/24 05:15 Hgb 14.7 g/dL (13.5-18.0) 03/07/24 05:15 Hct 41.4 % (42.0-54.0) L 03/07/24 05:15 MCV 88.1 fL (80.0-100.0) 03/07/24 05:15 MCH 31.3 pg (27.0-34.0) 03/07/24 05:15 MCHC 35.5 g/dL (33.0-35.0) H 03/07/24 05:15 RDW 13.9 % (11.6-16.5) 03/07/24 05:15 Plt Count 96 X10^3/uL (150.0-450.0) L 03/07/24 05:15 MPV 9.3 fL (7.4-11.0) 03/07/24 05:15 Neut % (Auto) 68.1 % (42.0-75.0) 03/07/24 05:15 Lymph % (Auto) 23.8 % (21.0-51.0) 03/07/24 05:15 [place] % (Auto) 6.6 % (0.0-13.0) 03/07/24 05:15 Eos % (Auto) 1.0 % (0.9-2.9) 03/07/24 05:15 Baso % (Auto) 0.5 % (0.2-1.0) 03/07/24 05:15 Neut # (Auto) 3.8 x10^3/uL (2.2-4.8) 03/07/24 05:15 Lymph # (Auto) 1.3 X10^3/uL (1.3-2.9) 03/07/24 05:15 [place] # (Auto) 0.4 x10^3/uL (0.3-0.8) 03/07/24 05:15 Eos # (Auto) 0.1 x10^3/uL (0.0-0.2) 03/07/24 05:15 Baso # (Auto) 0.0 X10^3/uL (0.0-0.1) 03/07/24 05:15 Absolute Nucleated RBC 0.1 /100WBC 03/07/24 05:15 PT 14.9 SECONDS (11.8-14.3) 03/05/24 15:41 INR Target Range - 03/05/24 15:41 INR 1.20 (0.8-1.3) 03/05/24 15:41 APTT 27.6 SECONDS (22.9-36.5) 03/05/24 15:41 PTT Comment - 03/05/24 15:41 Sodium 143 mmol/L (136-145) 03/07/24 05:15 Corrected Sodium 144 mmol/L (136-145) 03/07/24 05:15 Potassium 3.7 mmol/L (3.5-5.1) 03/07/24 05:15 Chloride 108 mmol/L (98-107) H 03/07/24 05:15 Carbon Dioxide 29.6 mmol/L (21-32) 03/07/24 05:15 BUN 11 mg/dL (7-18) 03/07/24 05:15 Creatinine 1.04 mg/dL (0.70-1.30) 03/07/24 05:15 Est GFR (MDRD) Af Amer > 60 (>60) 03/07/24 05:15 Est GFR (MDRD) Non-Af > 60 (>60) 03/07/24 05:15 Glucose 135 mg/dL (65-99) H 03/07/24 05:15 POC Glucose (mg/dL) 152 mg/dL (65-99) H 03/07/24 05:43 Calcium 8.8 mg/dL (8.5-10.1) 03/07/24 05:15 Corrected Calcium TNP 03/07/24 05:15 Total Bilirubin 0.90 mg/dL (0.2-1.0) 03/07/24 05:15 AST 19 Units/L (15-37) 03/07/24 05:15 ALT 24 Units/L (12-78) 03/07/24 05:15 Alkaline Phosphatase 73 Units/L (46-116) 03/07/24 05:15 Total Protein 6.4 g/dL (6.4-8.2) 03/07/24 05:15 Albumin 3.4 g/dL (3.4-5.0) 03/07/24 05:15 Globulin 3.0 g/dL (2.5-4.5) 03/07/24 05:15 Albumin/Globulin Ratio 1.1 Ratio (1.1-2.1) 03/07/24 05:15 Specimen Type Clean catch urine 03/05/24 16:32 Urine Color Pale yellow (YELLOW) 03/05/24 16:32 Urine Appearance Clear (CLEAR) 03/05/24 16:32 Urine pH 6.0 (5.0 - 8.0) 03/05/24 16:32 Ur Specific [place] 1.015 (1.000-1.030) 03/05/24 16:32 Urine Protein Negative (NEGATIVE) 03/05/24 16:32 Urine Glucose (UA) 4+ (NEGATIVE) 03/05/24 16:32 Urine Ketones Negative (NEGATIVE) 03/05/24 16:32 Urine Blood Negative (NEGATIVE) 03/05/24 16:32 Urine Nitrite Negative (NEGATIVE) 03/05/24 16:32 Urine Bilirubin Negative (NEGATIVE) 03/05/24 16:32 Urine Urobilinogen Normal (NORMAL) 03/05/24 16:32 Ur Leukocyte Esterase Negative (NEGATIVE) 03/05/24 16:32 Stl Occult Blood (IFOB) Positive (NEGATIVE) A 03/05/24 17:58 Plan (1) Ileus: Status: Acute (2) Internal bleeding hemorrhoids: Status: Acute Plan: if hemoglobin remains stable will discharge home , scheduled for colonoscopy on the furure , will schedule for circular stapled hemorroidectomy in the future
[2024-03-07] MEDS: KLOR-CON PO SCH (10:58)
[2024-03-07] MEDS: MAGNESIUM SULFATE 1 GRAM/100 mL PREMIX 1 G/100 ML BAG IV SCH (10:58)
--- NOTE | 2024-03-07 11:31 | PCM.PROG ---
Progress Note Progress Note for Day of Date of Exam: 03/07/24 Subjective Subjective: Pt is a 68 year old man Admitted for GI bleed. General surgeryDr. Canela has been consulted and is known to him. He has a history of significant prolapsing internal hemorrhoids and was going to be scheduled for hemorrhoidectomy. This morning he is resting comfortably in bed. No acute even ts overnight. His hemoglobin has remained stable. His CT of the abdomen and pelvis did show sigmoid diverticulosis. At this point, per surgery recommendations he is medically stable to be discharged with instructions to follow up with Dr Canela and GI-Dr Lakhani in 3-5 days. Past Medical Family Social History Allergies: Allergies codeine Allergy (Verified 03/05/24 15:26) empagliflozin Allergy (Verified 03/05/24 15:26) gluten Allergy (Verified 03/05/24 15:26) ibuprofen Allergy (Verified 03/05/24 15:26) morphine Allergy (Verified 03/05/24 15:26) wheat Allergy (Verified 03/05/24 15:26) BEE STINGS Allergy (Uncoded 10/09/17 19:30) Review of Systems ROS changes noted: see HPI Vital Signs and I&O's Vital Signs: Vital Signs Temperature 98.3 F Temperature 98.7 F Pulse Rate [Right Brachial] 55 Pulse Rate [Left Brachial] 71 Respiratory Rate 21 Respiratory Rate 21 Blood Pressure [Right Arm] 176/79 Blood Pressure [Left Arm] 150/71 O2 Sat by Pulse Oximetry 95 O2 Sat by Pulse Oximetry 96 Intake and Output: Intake & Output 03/04/24 03/05/24 03/06/24 03/07/24 23:59 23:59 23:59 23:59 Intake Total 166 / 166 3633 / 3633 931 / 931 Output Total 1121 / 1121 2 / Balance 166 / 166 2512 / 2512 929 / 929 Physical Exam Oriented: Normal, Time, Person and Place Eyes: Normal Ear: Normal Nose: Normal Throat: Normal Respiratory: Normal Cardiovascular: Normal : Normal Auscultation: Bowel Sounds: Normal Tenderness: Normal Skin: Normal Musculoskeletal: Normal Mood Description: Calm Affect: Normal Speech Pattern: Clear Laboratory and Diagnostics 03/07/24 05:15 03/07/24 05:15 Labs: Laboratory WBC 5.6 X10^3/uL (3.6-10.0) 03/07/24 05:15 RBC 4.70 X10^6/uL (4.7-6.0) 03/07/24 05:15 Hgb 14.7 g/dL (13.5-18.0) 03/07/24 05:15 Hct 41.4 % (42.0-54.0) L 03/07/24 05:15 MCV 88.1 fL (80.0-100.0) 03/07/24 05:15 MCH 31.3 pg (27.0-34.0) 03/07/24 05:15 MCHC 35.5 g/dL (33.0-35.0) H 03/07/24 05:15 RDW 13.9 % (11.6-16.5) 03/07/24 05:15 Plt Count 96 X10^3/uL (150.0-450.0) L 03/07/24 05:15 MPV 9.3 fL (7.4-11.0) 03/07/24 05:15 Neut % (Auto) 68.1 % (42.0-75.0) 03/07/24 05:15 Lymph % (Auto) 23.8 % (21.0-51.0) 03/07/24 05:15 [place] % (Auto) 6.6 % (0.0-13.0) 03/07/24 05:15 Eos % (Auto) 1.0 % (0.9-2.9) 03/07/24 05:15 Baso % (Auto) 0.5 % (0.2-1.0) 03/07/24 05:15 Neut # (Auto) 3.8 x10^3/uL (2.2-4.8) 03/07/24 05:15 Lymph # (Auto) 1.3 X10^3/uL (1.3-2.9) 03/07/24 05:15 [place] # (Auto) 0.4 x10^3/uL (0.3-0.8) 03/07/24 05:15 Eos # (Auto) 0.1 x10^3/uL (0.0-0.2) 03/07/24 05:15 Baso # (Auto) 0.0 X10^3/uL (0.0-0.1) 03/07/24 05:15 Absolute Nucleated RBC 0.1 /100WBC 03/07/24 05:15 PT 14.9 SECONDS (11.8-14.3) 03/05/24 15:41 INR Target Range - 03/05/24 15:41 INR 1.20 (0.8-1.3) 03/05/24 15:41 APTT 27.6 SECONDS (22.9-36.5) 03/05/24 15:41 PTT Comment - 03/05/24 15:41 Sodium 143 mmol/L (136-145) 03/07/24 05:15 Corrected Sodium 144 mmol/L (136-145) 03/07/24 05:15 Potassium 3.7 mmol/L (3.5-5.1) 03/07/24 05:15 Chloride 108 mmol/L (98-107) H 03/07/24 05:15 Carbon Dioxide 29.6 mmol/L (21-32) 03/07/24 05:15 BUN 11 mg/dL (7-18) 03/07/24 05:15 Creatinine 1.04 mg/dL (0.70-1.30) 03/07/24 05:15 Est GFR (MDRD) Af Amer > 60 (>60) 03/07/24 05:15 Est GFR (MDRD) Non-Af > 60 (>60) 03/07/24 05:15 Glucose 135 mg/dL (65-99) H 03/07/24 05:15 POC Glucose (mg/dL) 152 mg/dL (65-99) H 03/07/24 05:43 Calcium 8.8 mg/dL (8.5-10.1) 03/07/24 05:15 Corrected Calcium TNP 03/07/24 05:15 Magnesium 1.9 mg/dL (2.0-2.9) L 03/07/24 05:15 Total Bilirubin 0.90 mg/dL (0.2-1.0) 03/07/24 05:15 AST 19 Units/L (15-37) 03/07/24 05:15 ALT 24 Units/L (12-78) 03/07/24 05:15 Alkaline Phosphatase 73 Units/L (46-116) 03/07/24 05:15 Total Protein 6.4 g/dL (6.4-8.2) 03/07/24 05:15 Albumin 3.4 g/dL (3.4-5.0) 03/07/24 05:15 Globulin 3.0 g/dL (2.5-4.5) 03/07/24 05:15 Albumin/Globulin Ratio 1.1 Ratio (1.1-2.1) 03/07/24 05:15 Specimen Type Clean catch urine 03/05/24 16:32 Urine Color Pale yellow (YELLOW) 03/05/24 16:32 Urine Appearance Clear (CLEAR) 03/05/24 16:32 Urine pH 6.0 (5.0 - 8.0) 03/05/24 16:32 Ur Specific [place] 1.015 (1.000-1.030) 03/05/24 16:32 Urine Protein Negative (NEGATIVE) 03/05/24 16:32 Urine Glucose (UA) 4+ (NEGATIVE) 03/05/24 16:32 Urine Ketones Negative (NEGATIVE) 03/05/24 16:32 Urine Blood Negative (NEGATIVE) 03/05/24 16:32 Urine Nitrite Negative (NEGATIVE) 03/05/24 16:32 Urine Bilirubin Negative (NEGATIVE) 03/05/24 16:32 Urine Urobilinogen Normal (NORMAL) 03/05/24 16:32 Ur Leukocyte Esterase Negative (NEGATIVE) 03/05/24 16:32 Stl Occult Blood (IFOB) Positive (NEGATIVE) A 03/05/24 17:58 Plan (1) Ileus: Status: Acute (2) Internal bleeding hemorrhoids: Status: Acute Plan: if hemoglobin remains stable will discharge home , scheduled for colonoscopy on the furure , will schedule for circular stapled hemorroidectomy in the future
[2024-03-07] MEDS: ZEBETA TAB 5 MG PO SCH (13:40)
[2024-03-07 14:11] VITALS: BP 177/74; PULSE 60; RESP 18; TEMP 98.1
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
[2024-03-08] MEDS ORDERED: SYNTHROID 75 mcg TAB PO SCH (13:25)
== END 2024-03-07 14:55 | disposition home or self-care (01) ==
LOC: ER 15:00 → MED/SURG 15:00
PROVIDERS: ADMIT Surgery; ATTEND Obstetrics & Gynecology Obstetrics
DX: K64.8 Other hemorrhoids; Z79.899 Other long term (current) drug therapy; K21.9 Gastro-esophageal reflux disease without esophagitis; K57.30 Diverticulosis of large intestine without perforation or abscess without bleeding; K56.7 Ileus, unspecified; K62.5 Hemorrhage of anus and rectum; I10 Essential (primary) hypertension; E11.65 Type 2 diabetes mellitus with hyperglycemia; E03.8 Other specified hypothyroidism